=== PATIENT | female | born 1965 | race Hispanic/Latino ===

== ENCOUNTER 2018-05-12 07:22 | Day surgery (SDC) | payer BC ==
--- NOTE | 2018-05-11 16:45 | RAD REPORT ---
EXAM DESCRIPTION: RAD - Chest Pa And Lat (2 Views) - 05/11/2018 4:40 pm CLINICAL HISTORY: Hypertension Chest pain. COMPARISON: Chest Pa And Lat (2 Views) dated 04/08/2018; Chest Single View dated 12/03/2016; CHEST PA AN D LAT 2 VIEW dated 09/11/2015; CHEST SINGLE VIEW dated 01/08/2014 FINDINGS: The lungs are clear. The heart is normal in size. No displaced fractures. IMPRESSION: No acute or concerning finding suspected.
[2018-05-11 16:54] LABS: Absolute Lymphocytes (CBC) 2.9 K/uL (0.7-4.9); Absolute Monocytes 0.5 K/uL (0.1-1.3); Absolute Neutrophil 3.3 K/uL (1.8-8.0); Basophils % 0.7 % (0-1.3); Eosinophils % 2.2 % (0-4.4); Hematocrit 46.8 % (36.0-45.0); MCH 30.6 pg (27.0-35.0); MCV 90.3 fL (80-100); MPV 8.9 fL (7.6-11.3); Monocytes % 7.8 % (3.3-12.3); RBC Red Blood Cell Count 5.18 M/uL (3.86-4.86)
[2018-05-11 17:10] LABS: Albumin 4.2 g/dL (3.4-5.0); Bilirubin Direct 0.2 mg/dL (0-0.2); Bilirubin Total 1.1 mg/dL (0.2-1.0); Potassium 4.6 mmol/L (3.5-5.1); Protein, Total 7.8 g/dL (6.4-8.2)
--- NOTE | 2018-05-11 21:31 | EKG ---
Test Date: 2018-05-11 Test Time: 16:23:03 Mercerizing Range Controller: RHINA MEASUREMENT RESULTS: Intervals: Rate: 58 NC: 152 QRSD: 94 QT: 424 QTc: 416 [place]: P: 59 NC: 152 QRS: 27 T: 37 INTERPRETIVE STATEMENTS: Sinus bradycardia Otherwise normal ECG Compared to ECG 12/03/2016 11:42:34 Sinus rhythm no longer present Myocardial infarct finding no longer present Electronically Signed On 05-11-18 21:31:01 CDT by Jamey Gutierrez
[~2018-05-12 07:22] MED LIST: CEFOXITIN/SWI 1gm 1 GM/10 ML SYR IVP SCH
[2018-05-12] MEDS ORDERED: Ringers Lactate 1,000 ML IV ONE (07:38)
[2018-05-12] MEDS ORDERED: CEFOXITIN/SWI 1gm 1 GM/10 ML SYR ONE (07:50)
[2018-05-12] MEDS ORDERED: PROPOFOL 200 MG/20 ML VIAL IV ONE (08:03)
[2018-05-12] MEDS ORDERED: MIDAZOLAM HCL 2 MG/2 ML INJ ONE (08:04)
[2018-05-12] MEDS ORDERED: GLYCOPYRROLATE 0.2 MG/ML SYR ONE (08:04)
[2018-05-12] MEDS ORDERED: FENTANYL CITR 250 MCG/5 ML ONE (08:04)
[2018-05-12] MEDS ORDERED: LIDOCAINE 2% MPF 5 ML VIAL ONE (08:04)
[2018-05-12] MEDS ORDERED: ROCURONIUM 50 MG/5 ML VIAL IV ONE (08:12)
--- NOTE | 2018-05-12 08:50 | P.BOP ---
Preoperative diagnosis: RUQ abd pain, biliary dyskinesia Postoperative diagnosis: same Primary procedure: Laparoscopic cholecystectomy Relief Pilot: FILEMON CHANEY (java j2ee technical lead) Estimated blood loss: <10cc Specimen: gb Findings: as above Anesthesia: General Transferred to: Recovery Room Condition: Good
[2018-05-12] MEDS ORDERED: ONDANSETRON 4 MG/2 ML VIAL ONE (10:16)
[2018-05-12 10:54] VITALS: BP 154/79; TEMP 98.1; O2SAT 97
--- NOTE | 2018-05-12 20:03 | OP ---
Date of Procedure: 05/12/2018 Surgeon: Quan Lazo MD Lead Janitor: SCHUYLER Pemberton. Preoperative Diagnoses: Right upper quadrant abdominal pain and biliary dyskinesia. Postoperative Diagnoses: Right upper quadrant abdominal pain and biliary dyskinesia. Procedure: Laparoscopic cholecystectomy. Estimated Blood Loss: Less than 10 cc. Specimen: Gallbladder. Anesthesia: General plus local. Indications: This is a case of a 52-year-old patient with recurrent intractable right upper quadrant pain associated with nausea, vomiting, radiating to the back. The patient diagnosed with biliary dy skinesia. Options include laparoscopic possible open cholecystectomy that she has elected with benef its, alternatives, and risks fully explained, which include, but are not limited to infection, bleedi ng, damage to adjacent structures, anesthesia complication, choledocholithiasis, bile leak, pancreati tis, ID, and even . She also understands this may not relieve the symptoms. She might need mor e than one surgical intervention. She understood. Signed a consent. Description Of Procedure: The patient was brought to the operating room and placed in the supine pos ition. Anesthesia was done without complication. Abdominal area was prepped and draped in sterile f ashion. A time-out was called. After that, local anesthesia was applied over the infraumbilical reg ion. Incision was carried down to fascia, which was opened under direct vision. Peritoneum was enco untered, opened under direct vision. Vicryl #1 placed inside the fascia. Chloe trocar was carefull y introduced. No bleeding was obtained. I placed 3 more trocars, 5 mm each one of them, in the righ t upper quadrant under direct visualization. The grasper was placed in the fundus of the gallbladder , another grasper in the infundibulum, retracted the gallbladder in the inferolateral fashion exposin g the triangle of Calot and obtaining critical view of safety. The cystic duct and cystic artery wer e clearly isolated free circumferentially and a connection between those and the gallbladder was ainsley rly identified. I proceeded to ligate those by using at least 3 clips proximal, 1 clip distal, ligat ion in middle. Same was done with the cystic artery. No bile leak. No bleeding. The gallbladder r emoved from the liver using Bovie cauterizer and removed from abdominal cavity using an EndoCatch thr ough the umbilical incision. The area was inspected once again. No bile leak. No bleeding. Clips were intact. At that moment, I proceeded to remove the trocars under direct vision. Deflated pneumo peritoneum. Closed the fascia with #1 Vicryl, irrigated subcutaneous tissue and closed that with her chromic and skin in subcuticular fashion with 3-0 chromic and Steri-Strips on top. Sponge count and instrument counts were correct. The patient tolerated the procedure well. The patient was sent to recovery in stable condition. ISAMAR/DUKE Voice ID: [id number] Report ID: [id number]
--- NOTE | 2018-05-12 20:09 | DS ---
Date of Discharge: 05/12/2018 Diagnoses: Right upper quadrant abdominal pain and biliary dyskinesia. Procedure: Laparoscopic cholecystectomy. Disposition: Home. Activity: As tolerated. No heavy lifting. Followup: Follow up in my office in 1 week. Call for appointment [phone]. Keep area dry for 48 ho urs, then may shower. Keep Steri-Strip intact. Medications: See orders. ISAMAR/DUKE Voice ID: [id number] Report ID: [id number]
== END 2018-05-12 11:18 | disposition home or self-care (01) ==
LOC: OR 07:22
PROVIDERS: ATTEND Surgery
PROC: 0FT44ZZ Resection of Gallbladder, Percutaneous Endoscopic Approach (ICD-10-PCS; principal; 2018-05-12 09:00)
DX: K82.8 Other specified diseases of gallbladder (principal); R10.11 Right upper quadrant pain
CPT/HCPCS: 36415; 71046; 80048; 80076; 82150; 83690; 85025; 88304; 93005; J2250; J2405

== ENCOUNTER 2019-08-21 17:50 | Emergency (ER) | payer BC ==
--- NOTE | 2019-08-21 18:31 | EDPHYS ---
Physician Documentation [facility] Name: Elisa Silva Age: 53 yrs Sex: Female : 1965 Arrival Date: 08/21/2019 Time: 17:51 Bed 20 Private MD: Unknown, Unknown ED Physician David Parish HPI: 08/21 18:19 This 53 yrs old Female presents to ER via Ambulatory with complaints of Fever, jmm Sinus Congestion. 18:19 The patient or guardian reports nasal congestion. Onset: The symptoms/episode jmm began/occurred gradually, 3 day(s) ago. Modifying factors: The symptoms are alleviated by nothing. the symptoms are aggravated by nothing. Associated signs and symptoms: Pertinent positives: fever. This is a 53 year old female with a history of htn, asthma that presents to the ED with complaints of congestion, low grade fever beginning 3 days ago. Patient states she has taken tylenol without relief. Denies cough, denies sore throat. . Historical: - Allergies: 17:58 erythromycin lactobionate; hb 17:58 Macrolide Antibiotics; hb - PMHx: 17:58 Asthma; Hypertension; hb - PSHx: 17:58 Tubal ligation; Hysterectomy; hb - Immunization history:: Adult Immunizations up to date. - Social history:: Smoking status: Patient/guardian denies using tobacco. - Ebola Screening: : No symptoms or risks identified at this time. ROS: 18:19 Cardiovascular: Negative for chest pain, palpitations, and edema, Respiratory: Negative jmm for shortness of breath, cough, wheezing, and pleuritic chest pain, Abdomen/GI: Negative for abdominal pain, nausea, vomiting, diarrhea, and constipation. 18:19 Constitutional: Positive for fever. 18:19 ENT: Positive for nasal discharge, sinus congestion, sinus pain. 18:19 All other systems are negative. Exam: 18:19 Constitutional: This is a well developed, well nourished patient who is awake, alert, jmm and in no acute distress. 18:19 Chest/axilla: Normal chest wall appearance and motion. 18:19 Abdomen/GI: Non distended, soft Back: Normal ROM Skin: General appearance color normal MS/ Extremity: Moves all extremities, no obvious deformities appreciated, no edema noted to the lower extremities Neuro: Awake and alert, normal gait Psych: Behavior is normal, Mood is normal, Patient is cooperative and pleasant 18:19 Head/face: Sinus tenderness, that is moderate, is located over the right maxillary sinus and left maxillary sinus. 18:19 ENT: TM's: erythema, that is mild, bilaterally, Posterior pharynx: is normal. 18:19 Cardiovascular: Rate: normal, Rhythm: regular. 18:19 Respiratory: the patient does not display signs of respiratory distress, Respirations: normal, Breath sounds: are clear throughout. Vital Signs: 17:58 BP 146 / 85; Pulse 81; Resp 16; Temp 99.3; Pulse Ox 97% on R/A; Weight 63.5 kg; Height hb 5 ft. 6 in. (167.64 cm); Pain 2/10; 17:58 Body Mass Index 22.60 (63.50 kg, 167.64 cm) hb MDM: 18:19 Patient medically screened. dominic 18:27 Data reviewed: vital signs, nurses notes. Counseling: I had a detailed discussion with dominic the patient and/or guardian regarding: the historical points, exam findings, and any diagnostic results supporting the discharge/admit diagnosis, the need for outpatient follow up, to return to the emergency department if symptoms worsen or persist or if there are any questions or concerns that arise at home. ED course: Patient is alert and non toxic in appearance in the ED. PE appears consistent with sinusitis. Most likely viral. patient is advised to follow up with PCP and otherwise given strict return precautions. patient understood and agrees with the plan of care. . Administered Medications: No medications were administered Disposition: 08/21/19 18:30 Discharged to Home. Impression: Acute sinusitis. - Condition is Stable. - Discharge Instructions: Sinusitis, Adult. - Prescriptions for triamcinolone acetonide 55 mcg Nasal aerosol,spray - spray 2 spray by INTRANASAL route once daily; 1 Cartridge. - Medication Reconciliation Form, Thank You Letter, Antibiotic Education, Prescription Opioid Use form. - Follow up: Private Physician; When: 2 - 3 days; Reason: Recheck today's complaints, Continuance of care, Re-evaluation by your physician. Signatures: Jayden Hong PA PA jmm Munoz, Edgar, WIND OPERATIONS SUPERVISOR WIND OPERATIONS SUPERVISOR em Saloni Barry, RN RN Corrections: (The following items were deleted from the chart) 18:42 18:30 08/21/2019 18:30 Discharged to Home. Impression: Acute sinusitis. Condition is em Stable. Forms are Medication Reconciliation Form, Thank You Letter, Antibiotic Education, Prescription Opioid Use. Follow up: Private Physician; When: 2 - 3 days; Reason: Recheck today's complaints, Continuance of care, Re-evaluation by your physician. dominic
--- NOTE | 2019-08-21 18:31 | ER ---
Nurse's Notes [facility] Name: Elisa Silva Age: 53 yrs Sex: Female : 1965 Arrival Date: 08/21/2019 Time: 17:51 Bed 20 Private MD: Unknown, Unknown Diagnosis: Acute sinusitis Presentation: 08/21 17:57 Presenting complaint: Fever, sinus congestion, and malaise x 4 days. Transition of hb care: patient was not received from another setting of care. Onset of symptoms was August 18, 2019. Risk Assessment: Do you want to hurt yourself or someone else? Patient reports no desire to harm self or others. Care prior to arrival: None. 17:57 Method Of Arrival: Ambulatory hb 17:57 Acuity: JACKSON 4 hb 18:03 Initial Sepsis Screen: Does the patient meet any 2 criteria? No. Patient's initial em sepsis screen is negative. Does the patient have a suspected source of infection? No. Patient's initial sepsis screen is negative. Historical: - Allergies: 17:58 erythromycin lactobionate; hb 17:58 Macrolide Antibiotics; hb - PMHx: 17:58 Asthma; Hypertension; hb - PSHx: 17:58 Tubal ligation; Hysterectomy; hb - Immunization history:: Adult Immunizations up to date. - Social history:: Smoking status: Patient/guardian denies using tobacco. - Ebola Screening: : No symptoms or risks identified at this time. Screenin:03 Abuse screen: Denies threats or abuse. Nutritional screening: No deficits noted. em Tuberculosis screening: No symptoms or risk factors identified. Fall Risk None identified. Assessment: 18:13 General: Appears in no apparent distress. comfortable, Behavior is calm, cooperative, em Reports fever for > 3 days. Pain: Complains of pain in left maxillary sinus and right maxillary sinus Pain currently is 2 out of 10 on a pain scale. Neuro: Level of Consciousness is awake, alert, obeys commands, Oriented to person, place, time, situation, Appropriate for age. Cardiovascular: Capillary refill < 3 seconds Patient's skin is warm and dry. Respiratory: Airway is patent Respiratory effort is even, unlabored, Respiratory pattern is regular, symmetrical, Breath sounds are clear bilaterally. GI: Abdomen is flat, Bowel sounds present X 4 quads. Abd is soft and non tender X 4 quads. Patient currently denies nausea, vomiting. EENT: Nares are clear Oral mucosa is moist. Throat is clear is pink Reports nasal congestion since . Derm: Skin is intact, is healthy with good turgor, Skin is pink, warm \T\ dry. Musculoskeletal: Capillary refill < 3 seconds, Range of motion: intact in all extremities. Vital Signs: 17:58 BP 146 / 85; Pulse 81; Resp 16; Temp 99.3; Pulse Ox 97% on R/A; Weight 63.5 kg; Height hb 5 ft. 6 in. (167.64 cm); Pain 2/10; 17:58 Body Mass Index 22.60 (63.50 kg, 167.64 cm) hb ED Course: 17:51 Patient arrived in ED. ag5 17:52 Unknown, Unknown is Private Physician. ag5 17:58 Triage completed. hb 17:58 Arm band placed on. hb 18:00 Neel Dorman LVN is Primary Nurse. em 18:03 Patient has correct armband on for positive identification. Bed in low position. Call em light in reach. 18:04 Jayden Hong PA is PHCP. [facility] 18:04 David Parish MD is Attending Physician. [facility] 18:41 No provider procedures requiring assistance completed. Patient did not have IV access em during this emergency room visit. Administered Medications: No medications were administered Outcome: 18:30 Discharge ordered by . [facility] 18:41 Discharged to home ambulatory. em 18:41 Condition: good 18:41 Discharge instructions given to patient, Instructed on discharge instructions, follow up and referral plans. medication usage, Demonstrated understanding of instructions, follow-up care, medications, Prescriptions given X 1. 18:42 Patient left the ED. em Signatures: Jayden Hong PA PA Neel Strong LVN ODD BUNDLE WORKER em Saloni Barry RN RN Sumaya Mojica ag5 Corrections: (The following items were deleted from the chart) 17:59 17:58 BP 146 / 85; Pulse 81bpm; Resp 16bpm; Pulse Ox 97% RA; Temp 99F; 63.5 kg; Height hb 5 ft. 6 in.; BMI: 22.6; Pain 2/10; hb
[2019-08-21 18:47] VITALS: BP 146/85; TEMP 99.3; O2SAT 97
== END 2019-08-21 18:42 | disposition home or self-care (01) ==
LOC: ER 17:50
DX: J01.90 Acute sinusitis, unspecified (principal); I10 Essential (primary) hypertension; J45.909 Unspecified asthma, uncomplicated; Z88.1 Allergy status to other antibiotic agents; Z88.3 Allergy status to other anti-infective agents
CPT/HCPCS: 99282

== ENCOUNTER 2020-02-28 17:33 | Observation (INO) | payer BC ==
--- OUTSIDE RECORDS SUMMARY | 2020-02-28 17:37 | XMS REPORT ---
:1965 Author Organization [facility] t Address [address] [place] [address] Dr. Clarke [address] [place] [id number] Care Team Providers Name Role Phone Unavailable Unavailable Unavailable Problems This patient has no known problems. Allergies, Adverse Reactions, Alerts This patient has no known allergies or adverse reactions. Medications This patient has no known medications.
--- OUTSIDE RECORDS SUMMARY | 2020-02-28 17:39 | XMS REPORT | Summary of Care ---
:1965 Author Organization [facility] Address [address] [place] [id number] Care Team Providers Name Role Phone MD Myles Primary Care Provider Reason for Referral Radiology Services (Routine) Status Reason Specialty Diagnoses / Referred By Referred To Procedures Contact Contact New Request Diagnostic Diagnoses Open nondisplaced fracture of proximal phalanx of left little finger, initial encounter Vitaly Steele, Radiology Procedures XR HAND <3 VW LEFT PAC [address] [place] [address] Reason for Visit Reason Comments New Patient Left Small Finger Injury/Has Films Encounter Details Date Type Department Care Team Description 02/28/2020 Office Visit [facility] Vitaly Steele, Open nondisp laced Orthopaedic Surgery- PAC fracture of proximal [place] [address] of left little [address] finger, initial [address] [place], [place] encounter (Primary Dx) [place] [phone] Allergies Active Allergy Reactions Severity Noted Date Comments Erythromycin Hives 08/09/2010 documented as of this encounter (statuses as of 02/28/2020) Medications Medication Sig Dispensed Refills Start Date End Date Status albuterol sulfate (PROAIR Inhale. 0 Active HFA INHALE) fluticasone propionate Inhale 2 Puffs 12 g 11 05/19/2019 Active 110 mcg/actuation every 12 inhalerIndications: (twelve) hours. Moderate persistent asthma without complication amLODIPine 5 mg tablet Take 5 mg by 6 06/03/2019 Active mouth 2 (two) times daily. hydroCHLOROthiazide 12.5 3 06/03/2019 Active mg tablet metoprolol succinate XL TK 1 T PO QD 3 06/03/2019 Active 25 mg 24 hr tablet triamcinolone acetonide Apply to 15 g 3 06/10/2019 Active 0.1 % creamIndications: area(s) 2 (two) Rash and nonspecific skin times daily. eruption albuterol 2.5 mg /3 mL Inhale 3 mL 1 Box 0 07/01/2019 Active (0.083 %) nebulizer every 4 (four) solutionIndications: hours as needed Bronchitis for Wheezing or Shortness of Breath. methylPREDNISolone 4 mg Take by mouth 21 Each 0 07/01/2019 Active tabletsIndications: SEE-INSTRUCTIONS Bronchitis . follow package directions inhalational spacing Use as directed 1 Each 0 07/15/2019 Active device (BREATHERITE MDI SPACER)Indications: Mild persistent asthma without complication acetaminophen-codeine 1/2 - 1 tab 15 tablet 0 09/02/2019 Active 300-30 mg Every 4hrs as tabletIndications: Cough needed for pain or cough requiring narcotic documented as of this encounter (statuses as of 02/28/2020) Active Problems Problem Noted Date Chronic low back pain 08/29/2016 Localized superficial swelling, mass, or lump 05/04/20 07 Overview: Jaw mass documented as of this encounter (statuses as of 02/28/2020) Social History Tobacco Use Types Packs/Day Years Used Date Never Smoker Smokeless Tobacco: Never Used Alcohol Use Drinks/Week oz/Week Comments No 0 Standard drinks or equivalent 0.0 Sex Assigned at Date Recorded Not on file Job Start Date Occupation Industry Not on file Not on file Not on file Travel History Travel Start Travel End No recent travel history available. COVID-19 Exposure Response Date Recorded In the last month, have you been in contact with No / Unsure 02/28/2020 8:50 AM CDT someone who was confirmed or suspected to have Coronavirus / COVID-19? documented as of this encounter Last Filed Vital Signs Vital Sign Reading Time Taken Comments Blood Pressure 172/97 02/28/2020 8:59 AM CDT Pulse 68 02/28/2020 8:59 AM CDT Temperature - - Respiratory Rate - - Oxygen Saturation - - Inhaled Oxygen Concentration - - Weight 64.4 kg (142 lb) 02/28/2020 8:55 AM CDT Height 172.7 cm (5' 8") 02/28/2020 8:55 AM CDT Body Mass Index 21.59 02/28/2020 8:55 AM CDT documented in this encounter Progress Notes Vitaly Steele, PAC - 02/28/2020 9:00 AM CDT Cc: Chief Complaint Patient presents with New Patient Left Small Finger Injury/Has Films came in with finger splint. DOI: 02/16/20 - 10 days out today. Brought in films with report from [facility] 02/20/20. Patient leaving mothers house and caught foot on concrete and fell. Has fractured riband left small finger. Fatemeh Ca 02/28/2020 8:59 AM Danielle Silva is a 54 year old female. She tripped and fell cracking some ribs and breaking her left hand described as a fifth metacarpal fracture she came in today with a finger splint that goes to the base of the finger, pain is 4-5/10 inintensity. Has a burning pain at the base of her small finger of her left hand in the area of the proximal phalanx. X-rays performed at [facility]. Allergies Danielle is allergic to erythromycin. Medications Outpatient Medications Prior to Visit Medication Sig Dispense Refill acetaminophen-codeine 300-30 mg tablet 1/2 - 1 tab Every 4hrs as needed for pain or cough requiring narcotic 15 tablet 0 inhalational spacing device (BREATHERITE MDI SPACER) Use as directed 1 Each 0 albuterol 2.5 mg /3 mL (0.083 %) nebulizer solution Inhale 3 mL every 4 (four) hours as needed for Wheezing or Shortness of Breath. 1 Box 0 methylPREDNISolone 4 mg tablets Take by mouth SEE-INSTRUCTIONS. follow package directions 21 Each 0 amLODIPine 5 mg tablet Take 5 mg by mouth 2 (two) times daily. 6 hydroCHLOROthiazide 12.5 mg tablet 3 metoprolol succinate XL 25 mg 24 hr tablet TK 1 T PO QD 3 triamcinolone acetonide 0.1 % cream Apply to area(s) 2 (two) times daily. 15 g 3 fluticasone propionate 110 mcg/actuation inhaler Inhale 2 Puffs every 12 (twelve) hours. 12 g 11 albuterol sulfate (PROAIR HFA INHALE) Inhale. No facility-administered medications prior to visit. Histories Past Medical History: Diagnosis Date Anxiety Arthritis Bipolar 1 disorder Chronic low back pain 08/29/2016 Hypertension Past Surgical History: Procedure Laterality Date TUBAL LIGATION Social History Socioeconomic History Marital status: Spouse name: Not on file Number of children: Not on file Years of education: Not on file Highest education level: Not on file Occupational History Not on file Social Needs Financial resource strain: Not on file Food insecurity: Worry: Not on file Inability: Not on file Transportation needs: Medical: Not on file Non-medical: Not on file Tobacco Use Smoking status: Never Smoker Smokeless tobacco: Never Used Substance and Sexual Activity Alcohol use: No Alcohol/week: 0.0 standard drinks Drug use: No Sexual activity: Not on file Lifestyle Physical activity: Days per week: Not on file Minutes per session: Not on file Stress: Not on file Relationships Social connections: Talks on phone: Not on file Gets together: Not on file Attends jainism service: Not on file Active member of club or organization: Not on file Attends meetings of clubs or organizations: Not on file Relationship status: Not on file Intimate partner violence: Fear of current or ex partner: Not on file Emotionally abused: Not on file Physically abused: Not on file Forced sexual activity: Not on file Other Topics Concern Not on file Social History Narrative Not on file Family History Problem Relation Age of Onset No Significant Medical Problems NoFHx Review of Systems Constitutional: Negative. HENT: Negative. Eyes: Negative. Respiratory: Negative. Breasts: Negative. Cardiovascular: Negative. Gastrointestinal: Negative. Genitourinary: Negative. Musculoskeletal: Positive for joint swelling. Skin: Negative. Neurological: Negative. Psychiatric/Behavioral: Negative. Endocrine: Endocrine negative Vital Signs Physical Exam Musculoskeletal: Physical Exam Constitutional: oriented to person, place, and time. appears well-developed and well-nourished. HENT: Head: Normocephalic and atraumatic. Right Ear: External ear normal. Left Ear: External ear normal. Eyes: Conjunctivae are normal. Neck: Normal range of motion. No strabismus Neck supple. Cardiovascular: Normal rate and regular rhythm. Pulmonary/Chest: Normal respiratory rate equal chest rise and fall in no apparent distress Abdominal: Abdomen nondistended nontender Neurological: alert and oriented to person, place, and time. No asymmetry Skin: Skin is warm and dry. Psychiatric: normal mood and affect. behavior is normal. Judgment and thought content normal. Nursing note and vitals reviewed. Point tenderness and ecchymosis at the proximal portion of the small finger of her left hand X-rays obtained at [facility] on 02/20/2020 findings: Minimally displaced fracture and vitals the proximal aspect of the fifth metacarpal. No dislocation dictated by Clement Garcia M.D. X-rays reviewed there is no fracture visible at the proximal fifth metacarpal but there is an oblique fracture in the base of the proximal phalanx of the fifth finger this fracture is nondisplaced Assessment/Plan 1. Open nondisplaced fracture of proximal phalanx of left little finger, initial encounter She was placed in an ulnar gutter splint by Vitaly Steele PA-C, wear this for 6 weeks Follow-up x-ray in one week No lifting pushing pulling grasping squeezing with the left hand for 6 weeks. documented in this encounter Plan of Treatment Health Maintenance Due Date Last Done Comments PNEUMOCOCCAL 0-64 YEARS COMBINED 1972 SERIES (1 of 1 - PPSV23) DTaP,Tdap,and Td Vaccines (1 - 1977 Tdap) COLONOSCOPY 2016 INFLUENZA VACCINE (#1) 2019 Breast Cancer Screening 10/11/2019 10/11/2018 (MAMMOGRAM) Zoster Recombinant Vaccine 06/20/2020 Postp oned from 2016 (SHINGRIX) (1 of 2) (Refused) documented as of this encounter Results XR HAND <3 VW LEFT (02/28/2020 9:23 AM CDT) Specimen Narrative Performed At This result has an attachment that is no t available. obliqui fracture base of proximal phalanx left fifth finger remains PACS nondisplaced there is a break in the cortex with a obl ique lucency Performing Organization Address City/State/Zipcode Phone Number PACS documented in this encounter Visit Diagnoses Diagnosis Open nondisplaced fracture of proximal p halanx of left little finger, initial encounter - Primary documented in this encounter Insurance Payer Benefit Plan / Subscriber ID Effective Dates Phone Addre ss Type Group [place] [id number] 2015-Present PPO/POS [employer]EE EMPLOYEE PLAN (Work) documented as of this encounter
--- OUTSIDE RECORDS SUMMARY | 2020-02-28 17:39 | XMS REPORT | Summary of Care ---
:1965 Author Organization [facility] Address [address] [place] [address] Care Team Providers Name Role Phone MD Myles Primary Care Provider Reason for Referral Radiology Services (Routine) Status Reason Specialty Diagnoses / Referred By Referred To Procedures Contact Contact New Request Diagnostic Diagnoses Open nondisplaced fracture of proximal phalanx of left little finger, initial encounter Vitaly Steele, Radiology Procedures XR HAND <3 VW LEFT PAC [address] [place] [address] Reason for Visit Reason Comments New Patient Left Small Finger Injury/Has Films Encounter Details Date Type Department Care Team Description 02/28/2020 Office Visit [facility] Vitaly Steele, Open nondisp laced Orthopaedic Surgery- PAC fracture of proximal [place] [address] phalanx of left little [address] finger, initial [address] [place], [place] encounter (Primary Dx) [place] [phone] Allergies Active Allergy Reactions [...] today. Brought in films with report from [facility] 02/20/20. Patient leaving mothers house and caught [...] of the proximal phalanx. [facility]. Allergies Danielle is allergic to erythromycin. 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
[2020-02-28] MEDS ORDERED: MORPHINE 4 MG/ML SYR ONE (18:20)
[2020-02-28] MEDS ORDERED: ONDANSETRON 4 MG/2 ML VIAL ONE (18:20)
[2020-02-28] MEDS ORDERED: PROMETHAZINE INJ 25 MG/ML AMP ONE (18:20)
[2020-02-28] MEDS ORDERED: NA CHLORIDE 0.9% 1,000 ML ONE ×2 (18:20→20:48)
[2020-02-28 18:43] LABS: Absolute Lymphocytes (CBC) 1.2 K/uL (0.7-4.9); Basophils % 0.3 % (0-1.3); Hematocrit 48.1 % (36.0-45.0); Lymphocytes % 11.3 % (15.3-44.8); MPV 8.9 fL (7.6-11.3); RBC Red Blood Cell Count 5.28 M/uL (3.86-4.86)
[2020-02-28 18:55] LABS: Albumin 4.3 g/dL (3.4-5.0); Bilirubin Direct 0.1 mg/dL (0-0.2); Potassium 3.9 mmol/L (3.5-5.1)
--- NOTE | 2020-02-28 19:57 | RAD REPORT ---
EXAM DESCRIPTION: CT - Abdomen Pelvis W Contrast - 02/28/2020 7:36 pm CLINICAL HISTORY: Abdominal pain COMPARISON: none. TECHNIQUE: Computed axial tomography of the abdomen pelvis was obtained. 100 cc Isovue-300 was admin istered intravenously. Oral contrast was not requested which limits evaluation of bowel. All CT scans are performed using dose optimization technique as appropriate and may include automated exposure control or mA/KV adjustment according to patient size. FINDINGS: Cholecystectomy The liver, spleen, pancreas, adrenal and kidneys appear unremarkable. There is no evidence of diverticulitis. The appendix is borderline enlarged. No stranding is seen within the adjacent fat. No free air. No ab scess Small umbilical hernia IMPRESSION: Borderline enlargement of the appendix. Given that there is no stranding within the eun cent fat this probably is not significant. However, an early appendicitis can also have this appearan ce and should be correlated clinically.
--- NOTE | 2020-02-28 20:37 | ER ---
Nurse's Notes [facility] Name: Elisa Silva Age: 54 yrs Sex: Female : 1965 Arrival Date: 02/28/2020 Time: 17:37 Bed 8 Private MD: Diagnosis: Acute appendicitis Presentation: 02/27 18:08 Chief complaint: Patient states: vomiting, diarrhea abd cramping X 1 hour , +chills, no iw fever. Coronavirus screen: Proceed with normal triage. Patient denies a cough. Patient denies shortness of breath or difficulty breathing. Patient denies measured and/or subjective temperature greater than 100.4F prior to today's visit. Patient denies travel on a cruise ship or to a country the [facility] currently lists as an affected area. Patient denies contact with known and/or suspected case of COVID-19. Ebola Screen: Patient negative for fever greater than or equal to 101.5 degrees Fahrenheit, and additional compatible Ebola Virus Disease symptoms Patient denies exposure to infectious person. Patient denies travel to an Ebola-affected area in the 21 days before illness onset. No symptoms or risks identified at this time. Initial Sepsis Screen: Does the patient meet any 2 criteria? No. Patient's initial sepsis screen is negative. Does the patient have a suspected source of infection? No. Patient's initial sepsis screen is negative. Risk Assessment: Do you want to hurt yourself or someone else? Patient reports no desire to harm self or others. Onset of symptoms was February 28, 2020. 18:08 Method Of Arrival: Ambulatory iw 18:08 Acuity: JACKSON 3 iw Triage Assessment: 18:25 General: Appears in no apparent distress. comfortable, well developed, Behavior is sv calm, cooperative, appropriate for age. Pain: Complains of pain in left upper quadrant and left lower quadrant Pain currently is 4 out of 10 on a pain scale. Quality of pain is described as crampy, Pain began 1 hour ago. Is continuous. Neuro: Level of Consciousness is awake, alert, obeys commands, Oriented to person, place, time, situation, Gait is steady. Respiratory: Airway is patent Respiratory effort is even, unlabored, Respiratory pattern is regular, symmetrical. GI: Reports cramping, diarrhea, nausea, vomiting. Derm: Skin is intact, Skin is pink, warm \T\ dry. 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 - Social history:: Smoking status: Patient denies any tobacco usage or history of. Screenin:04 Abuse screen: Denies threats or abuse. Denies injuries from another. Nutritional sv screening: No deficits noted. Tuberculosis screening: No symptoms or risk factors identified. Fall Risk None identified. Assessment: 18:25 Reassessment: Pt refused phenergan and morphine at this time. sv 19:00 General: Appears in no apparent distress. comfortable, Behavior is calm, cooperative, rr5 appropriate for age. Pain: Complains of pain in right lower quadrant Pain radiates to left upper quadrant and left lower quadrant Pain currently is 4 out of 10 on a pain scale. Quality of pain is described as aching, Pain began gradually, Is intermittent. Neuro: Level of Consciousness is awake, alert, obeys commands, Oriented to person, place, time, situation. Cardiovascular: Capillary refill < 3 seconds Patient's skin is warm and dry. Respiratory: Airway is patent Respiratory effort is even, unlabored, Respiratory pattern is regular, symmetrical. GI: Abdomen is round non-distended, Bowel sounds present X 4 quads. Abd is soft and non tender Reports lower abdominal pain, upper abdominal pain, diarrhea, nausea. : No signs and/or symptoms were reported regarding the genitourinary system. EENT: No signs and/or symptoms were reported regarding the EENT system. Derm: Skin is intact, is healthy with good turgor, Skin temperature is warm. Musculoskeletal: Circulation, motion, and sensation intact. Capillary refill < 3 seconds. 19:56 Reassessment: Patient appears in no apparent distress at this time. Patient and/or mg2 family updated on plan of care and expected duration. Pain level reassessed. Patient is alert, oriented x 3, equal unlabored respirations, skin warm/dry/pink. 21:05 Reassessment: Patient appears in no apparent distress at this time. Patient is alert, rr5 oriented x 3, equal unlabored respirations, skin warm/dry/pink. seen and examined by dr. becerra. 22:07 Reassessment: Patient appears in no apparent distress at this time. Patient is alert, rr5 oriented x 3, equal unlabored respirations, skin warm/dry/pink. transferred to surgical floor awake alert breathing spontaneously at room air no complaints made. Vital Signs: 18:08 BP 174 / 82; Pulse 59; Resp 16; Temp 98.4; Pulse Ox 100% on R/A; Pain 4/10; iw 18:51 BP 160 / 77; Pulse 66; Resp 16; Pulse Ox 100% ; sv 19:55 BP 143 / 70; Pulse 73; Resp 18; Pulse Ox 98% on R/A; mg2 20:55 BP 153 / 80; Pulse 70; Resp 17; Pulse Ox 99% ; Pain 4/10; rr5 21:19 BP 168 / 87; Pulse 71; Resp 18; Temp 98.4; Pulse Ox 99% on R/A; mg2 ED Course: 17:37 Patient arrived in ED. mr 18:03 Susanne Sidhu RN is Primary Nurse. sv 18:04 Arm band placed on Patient placed in an exam room, on a stretcher, on pulse oximetry. sv 18:04 Patient has correct armband on for positive identification. Bed in low position. Call sv light in reach. Pulse ox on. NIBP on. Door closed. Head of bed elevated. 18:07 Arnaud Temple NP is PHCP. pm1 18:07 Kvng Goins MD is Attending Physician. pm1 18:09 Triage completed. iw 18:25 Initial lab(s) drawn, by me, sent to lab. Inserted saline lock: 20 gauge in right jl7 antecubital area, using aseptic technique. Blood collected. 18:[address] Scan. sv 19:03 Report given to Robby SOW and Maninder SOW. sv 19:08 Primary Nurse role handed off by Susanne Sidhu, MAGI sv 19:12 Robby Sales RN is Primary Nurse. mg2 19:36 CT Abd/Pelvis - IV Contrast Only In Process Unspecified. EDMS 19:56 No provider procedures requiring assistance completed. mg2 20:36 Clif Becerra MD is Hospitalizing Provider. pm1 21:24 Patient admitted, IV remains in place. intact, No redness/swelling at site. rr5 21:53 Initial lab(s) drawn, by me, sent to lab. rr5 Administered Medications: 18:25 Drug: NS 0.9% 1000 ml Route: IV; Rate: 1000 ml; Site: right antecubital; jl7 19:30 Follow up: Response: No adverse reaction; IV Status: Completed infusion; IV Intake: rr5 1000ml 19:07 Not Given (Patient Refused): morphine 4 mg IVP once; RASS on ADMIN: Combtv4, Very jl7 Agttd3, Agttd2, Rstlss1, AlertClm0, Drwsy-1, Lt Sdtn-2, Mod Sdtn-3, Dp Sdtn-4, UnArsble-5 19:07 Not Given (Patient Refused): Phenergan 12.5 mg IVP once jl7 20:47 Drug: Zosyn 3.375 grams Route: IVPB; Infused Over: 60 mins; Site: right antecubital; mg2 21:21 Follow up: Response: No adverse reaction; IV Status: Completed infusion; IV Intake: rr5 100ml 20:47 Drug: NS 0.9% 1000 ml Route: IV; Rate: 125 ml/hr; Site: right antecubital; mg2 21:22 Follow up: Response: No adverse reaction; IV Status: Infusion continued upon admission rr5 Intake: 19:30 IV: 1000ml; Total: 1000ml. rr5 21:21 IV: 100ml; Total: 1100ml. rr5 Outcome: 20:36 Decision to Hospitalize by Provider. pm1 21:30 Admitted to Med/surg accompanied by tech, room 221, with chart, Report called to wally rr5 21:30 Condition: stable 21:30 Instructed on the need for admit. 22:07 Patient left the ED. rr5 Signatures: Dispatcher [employer] EDMS Susanne Sidhu RN RN sv [place], Mary mr Williams, Irene, RN RN iw Arnaud Temple, ISIDRO DIVERSIONAL THERAPIST'S ASSISTANT pm1 Ed Vann RN RN jl7 Robby Slaes RN RN mg2 Miranda, Maninder, RN RN rr5
--- NOTE | 2020-02-28 20:37 | EDPHYS ---
Physician Documentation [facility] Name: Elisa Silva Age: 54 yrs Sex: Female : 1965 Arrival Date: 02/28/2020 Time: 17:37 Bed 8 Private MD: ED Physician Kvng Goins HPI: 02/27 18:15 This 54 yrs old Female presents to ER via Ambulatory with complaints of pm1 Abdominal Pain, Vomiting/Diarrhea. 18:15 The patient presents with abdominal pain in the left lower quadrant. Onset: The pm1 symptoms/episode began/occurred this morning. The symptoms do not radiate. Associated signs and symptoms: Pertinent positives: nausea, vomiting, and diarrhea, Pertinent negatives: chest pain, dysuria, fever, shortness of breath. The symptoms are described as crampy. Modifying factors: The symptoms are alleviated by nothing, the symptoms are aggravated by nothing. Severity of pain: in the emergency department the pain is actually worse. The patient has not experienced similar symptoms in the past. The patient has not recently seen a physician, the patient's primary care provider is Dr. Jarrell. 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 - Social history:: Smoking status: Patient denies any tobacco usage or history of. ROS: 18:15 Constitutional: Negative for fever, chills, and weight loss, Neck: Negative for injury, pm1 pain, and swelling, Cardiovascular: Negative for chest pain, palpitations, and edema, Respiratory: Negative for shortness of breath, cough, wheezing, and pleuritic chest pain. 18:15 Back: Negative for injury and pain, MS/Extremity: Negative for injury and deformity, Skin: Negative for injury, rash, and discoloration. 18:15 : Negative for injury, bleeding, discharge, and swelling, Neuro: Negative for headache, weakness, numbness, tingling, and seizure. 18:15 Abdomen/GI: Positive for abdominal pain, nausea, vomiting, and diarrhea, Negative for constipation. Exam: 18:15 Constitutional: This is a well developed, well nourished patient who is awake, alert, pm1 and in no acute distress. Head/Face: Normocephalic, atraumatic. Chest/axilla: Normal chest wall appearance and motion. Nontender with no deformity. No lesions are appreciated. 18:15 Abdomen/GI: Soft, non-tender, with normal bowel sounds. No distension or tympany. No guarding or rebound. No evidence of tenderness throughout. Back: No spinal tenderness. No costovertebral tenderness. Full range of motion. Skin: Warm, dry with normal turgor. Normal color with no rashes, no lesions, and no evidence of cellulitis. MS/ Extremity: Pulses equal, no cyanosis. Neurovascular intact. Full, normal range of motion. 18:15 Cardiovascular: Exam negative for acute changes, Rate: normal, Pulses: no pulse deficits are appreciated, Edema: is not appreciated. 18:15 Respiratory: Exam negative for acute changes, respiratory distress, shortness of breath, wheezing. 18:15 Neuro: Exam negative for acute changes, Orientation: is normal, Mentation: is normal, Motor: is normal, moves all fours. Vital Signs: 18:08 BP 174 / 82; Pulse 59; Resp 16; Temp 98.4; Pulse Ox 100% on R/A; Pain 4/10; iw 18:51 BP 160 / 77; Pulse 66; Resp 16; Pulse Ox 100% ; sv 19:55 BP 143 / 70; Pulse 73; Resp 18; Pulse Ox 98% on R/A; mg2 20:55 BP 153 / 80; Pulse 70; Resp 17; Pulse Ox 99% ; Pain 4/10; rr5 21:19 BP 168 / 87; Pulse 71; Resp 18; Temp 98.4; Pulse Ox 99% on R/A; mg2 MDM: 18:08 Patient medically screened. pm1 20:19 Data reviewed: vital signs. Data interpreted: Pulse oximetry: on room air is 98 %. pm1 Interpretation: normal. 20:19 Counseling: I had a detailed discussion with the patient and/or guardian regarding: the pm1 historical points, exam findings, and any diagnostic results supporting the discharge/admit diagnosis, lab results, radiology results, the need for further work-up and treatment in the hospital. 20:28 Physician consultation: Clif Garza MD was called at 20:28, was contacted at 20:28, pm1 regarding admission, patient's condition, and will see patient tomorrow, NPO at midnight, IV fluids, Zosyn. 02/27 18:12 Order name: Basic Metabolic Panel; Complete Time: 18:56 pm1 02/27 18:12 Order name: CBC with Diff; Complete Time: 18:47 pm1 02/27 18:12 Order name: Creatinine for Radiology; Complete Time: 18:56 pm1 02/27 18:12 Order name: Hepatic Function; Complete Time: 18:56 pm1 02/27 18:12 Order name: Lipase; Complete Time: 18:56 pm1 02/27 20:17 Order name: Urine Microscopic Only mg2 02/27 18:12 Order name: CT Abd/Pelvis - IV Contrast Only; Complete Time: 20:06 pm1 02/27 20:18 Order name: Urine Microscopic Only; Complete Time: 21:55 EDMS 02/27 20:20 Order name: Urine Dipstick--Ancillary (enter results); Complete Time: 21:12 ar5 02/27 20:20 Order name: Urine --Ancillary (enter results); Complete Time: 21:12 ar5 02/27 18:12 Order name: IV Saline Lock; Complete Time: 18:25 pm1 02/27 18:12 Order name: Labs collected and sent; Complete Time: 18:25 pm1 02/27 20:28 Order name: NPO: at midnight; Complete Time: 20:39 pm1 Administered Medications: 18:25 Drug: NS 0.9% 1000 ml Route: IV; Rate: 1000 ml; Site: right antecubital; jl7 19:30 Follow up: Response: No adverse reaction; IV Status: Completed infusion; IV Intake: rr5 1000ml 19:07 Not Given (Patient Refused): morphine 4 mg IVP once; RASS on ADMIN: Combtv4, Very jl7 Agttd3, Agttd2, Rstlss1, AlertClm0, Drwsy-1, Lt Sdtn-2, Mod Sdtn-3, Dp Sdtn-4, UnArsble-5 19:07 Not Given (Patient Refused): Phenergan 12.5 mg IVP once jl7 20:47 Drug: Zosyn 3.375 grams Route: IVPB; Infused Over: 60 mins; Site: right antecubital; mg2 21:21 Follow up: Response: No adverse reaction; IV Status: Completed infusion; IV Intake: rr5 100ml 20:47 Drug: NS 0.9% 1000 ml Route: IV; Rate: 125 ml/hr; Site: right antecubital; mg2 21:22 Follow up: Response: No adverse reaction; IV Status: Infusion continued upon admission rr5 Disposition: 02/28/20 20:36 Hospitalization ordered by Clif Garza for Observation. Preliminary diagnosis is Acute appendicitis. - Bed requested for Telemetry/MedSurg (observation). - Status is Observation. rr5 - Condition is Stable. - Problem is new. - Symptoms have improved. Addendum: 03/03/2020 07:53 Co-signature as Attending Physician, Kvng Goins MD. r n Signatures: Dispatcher [employer] EDSusanne Deleon, RN RN Tesha Edwards RN MAGI dw Mira Downey, RN MAGI iw Kvng Goins MD MD rn Arnaud Temple, SEARCH MANAGER SEARCH MANAGER pm1 Ed Vann RN RN jl7 oRbby Sales, MAGI RN mg2 Maninder Miranda, RN RN rr5 Corrections: (The following items were deleted from the chart) 02/27 21:17 20:36 Hospitalization Ordered by Clif Garza MD for Observation. Preliminary diagnosis dw is Acute appendicitis. Bed requested for Telemetry/MedSurg (observation). Status is Observation. Condition is Stable. Problem is new. Symptoms have improved. pm1 22:07 21:17 02/28/2020 20:36 Hospitalization Ordered by Clif Garza MD for Observation. rr5 Preliminary diagnosis is Acute appendicitis. Bed requested for Telemetry/MedSurg (observation). Status is Observation. Condition is Stable. Problem is new. Symptoms have improved. dw
[2020-02-28] MEDS ORDERED: PIPER/TAZO/NS 3.375gm 3.375 GM/100 ML BAG ONE (20:48)
[2020-02-28 20:50] LABS: Urine Blood TRACE (NEG); Urine Glucose NEGATIVE (NEG); Urine Protein NEGATIVE (NEG)
[2020-02-28 21:16] LABS: Urine Bacteria <20 /HPF (<20); Urine Culture Reflex Order NOT NEEDED; Urine RBC NONE SEEN /HPF (NONE SEEN); Urine Urothelial Cells <5 /HPF (NONE SEEN)
[2020-02-28] MEDS: NA CHLORIDE 0.9% 1,000 ML IV SCH (22:01)
[2020-02-28] MEDS ORDERED: ALBUTEROL INHALER 60 PUFF/8 GM IH PRN (22:01)
[2020-02-28] MEDS ORDERED: MORPHINE 4 MG/ML SYR IV PRN (22:01)
[2020-02-28] MEDS ORDERED: ONDANSETRON 4 MG/2 ML VIAL IV PRN (22:01)
[2020-02-28] MEDS ORDERED: HYDRALAZINE HCL 20 MG/ML VIAL IV PRN (22:01)
--- NOTE | 2020-02-28 22:42 | HP ---
Date of Admission: 02/28/2020 Brief History Of Present Illness: Patient is a 54-year-old female who presents with approximately 1- day history of left lower quadrant abdominal pain extending up to the left upper quadrant. She has n ever had similar episodes before in the past, associated with nausea, vomiting, diarrhea. She has marcus d no change in bowel or bladder habits recently. No sick contacts. No recent travel. No COVID expo sure. She has not had any changes in her eating habits as well and she noted that the only relevant thing that has happened in the last week, approximately earlier in the week she fell down onto her le ft side, fractured a left-sided rib and left metacarpal which was treated on an outpatient basis. Th is is not associated with a type of symptomatology at this point. She feels somewhat better since be ing here at the hospital, however, she continues to have left lower quadrant abdominal pain with no r adiation to the right side. No rebound. No guarding. No focal peritonitis. Past Medical History: Significant for hypertension, asthma. Past Surgical History: She has tubal ligation, hysterectomy and a cholecystectomy. Home Medications: Include amlodipine, metoprolol, hydrochlorothiazide, and a rescue inhaler of albut liam. Social History: She denies smoking, alcohol, or recreational drug use. Family History: Reviewed, noncontributory. Allergies: TO ERYTHROMYCIN AND MACROLIDE ANTIBIOTICS. Review of Systems: 10-point review of systems other than HPI, denies. Physical Examination: Vital Signs: At the time of my examination, blood pressure is 160/77, pulse is 66, respiratory rate 16, SpO2 100% on room air. General: She is awake, alert, oriented. Psychiatric: She is appropriate conversive. HEENT: Normocephalic. Sclerae icteric. Mucous membranes are moist. Oropharynx clear. Neck: Supple. No JVD. Chest: Normal expansion and excursion Cardiovascular: Rate and rhythm. Pulmonary: Clear to auscultation bilaterally. Abdomen: Soft with mild left lower quadrant tenderness to palpation. No rebound. No guarding. No focal peritonitis. She has a small fat containing umbilical hernia. Right lower quadrant examinatio n is essentially unremarkable particularly McBurney's point, there is no tenderness. No rebound. No guarding. No skin changes. Extremities: No clubbing, cyanosis, or edema. Skin: Warm, dry. Laboratory Data: Reveals a white blood count of 10.9, hemoglobin 6.9, hematocrit of 48.1, platelet c ount is 385, neutrophils 82%. Her sodium 140, potassium 3.9, chloride 106, carbon dioxide 30, BUN 14 , creatinine 0.8, glucose 107, calcium is 9.7, total bilirubin 1.0, direct component 0.1, AST 39, ALT 53, alkaline phosphatase 160, lipase 98. UA showed only trace blood and trace leukocyte esterase. Her urine test was negative. She had a CT scan performed of abdomen and pelvis which is of ficially read as borderline enlargement of the appendix, given that there is no stranding within the adjacent fat, probably is not significant, however, early appendicitis could also have this appearanc e, this should be clinically correlated. Assessment And Plan: This is a 54-year-old female who comes in with borderline enlargement of the ap pendix, however, left lower quadrant abdominal pain and no clinical signs symptoms of appendicitis. 1.IV fluid hydration. 2.Antibiotic coverage. 3.Serial abdominal exams. 4.This does not seem to be an appendicitis type picture, but rather possibly a colitis type picture. However, will exam her in the morning to see if patient's symptomatology is improved. I have explained the risks, benefits, alternatives the above stated plan, the patient agrees to as indicated . LEE/DUKE Voice ID: [id number]
[2020-02-28 23:10] VITALS: BMI 23.3
[2020-02-29] MEDS ORDERED: PIPER/TAZO/NS 3.375gm 6.750 GM/200 ML BAG ONE (02:49)
[2020-02-29] MEDS: PIPER/TAZO/NS 3.375gm 3.375 GM/100 ML BAG IVPB SCH ×4 (02:50→17:26)
[2020-02-29 04:56] LABS: ALT/SGPT 40 U/L (12-78); AST/SGOT 27 U/L (15-37); Albumin 3.5 g/dL (3.4-5.0); Alkaline Phosphatase 130 U/L (45-117); BUN Blood Urea Nitrogen 9 mg/dL (7-18); Bicarbonate 23 mmol/L (21-32); Bilirubin Direct 0.3 mg/dL (0-0.2); Bilirubin Total 1.5 mg/dL (0.2-1.0); Glucose Level 95 mg/dL (74-106); Lipase 72 U/L (73-393); Potassium 3.5 mmol/L (3.5-5.1); Protein, Total 6.6 g/dL (6.4-8.2); Sodium Level 144 mmol/L (136-145)
[2020-02-29 05:15] LABS: Basophils % 0.7 % (0-1.3); Hematocrit 42.9 % (36.0-45.0); Lymphocytes % 27.3 % (15.3-44.8); MPV 8.9 fL (7.6-11.3); RBC Red Blood Cell Count 4.68 M/uL (3.86-4.86)
[2020-02-29] MEDS: NA CHLORIDE 0.9% 1,000 ML IV SCH ×3 (06:16→22:01)
--- NOTE | 2020-02-29 11:59 | P.PN ---
Subjective Date of Service: 02/29/20 Subjective: No new changes Physical Examination - Vital Signs Temperature: 98.2 F Blood Pressure: 166/77 Pulse: 75 Respirations: 18 Pulse Ox (%): 97 - Physical Exam General: Alert, In no apparent distress, Cooperative Respiratory: Clear to auscultation bilaterally, Normal air movement Cardiovascular: Regular rate/rhythm Gastrointestinal: Other (soft, mild LLQ TTP, minimal RLQ TTP, ND, no rebound, no guarding, no peritoneal signs) Integumentary: No rashes Neurological: Normal speech - Studies Laboratory Data (last 24 hrs) 02/28/20 18:25: Creatinine 0.84 02/28/20 18:25: WBC 10.9, Hgb 16.1 H, Hct 48.1 H, Plt Count 385 02/28/20 18:25: Sodium 140, Potassium 3.9, BUN 14, Creatinine 0.87, Glucose 107 H, Total Bilirubin 1.0, AST 39 H, ALT 53, Alkaline Phosphatase 160 H, Lipase 98 Assessment And Plan - Current Problems (Diagnosis) (1) Colitis Current Visit: Yes Status: Acute Plan: - Repeat CT scan with PO contrast did not show appendicitis, but rather a LEFT sided colitis is suspected - will start PO clears - continue antibiotics - stool studies - serial exams - continue IV hydration
--- NOTE | 2020-02-29 12:01 | RAD REPORT ---
EXAM DESCRIPTION: CT - Abdomen Pelvis W/Wo Contrast - 02/29/2020 11:50 am CLINICAL HISTORY: rule out appendicitis Left lower quadrant abdominal pain and tenderness. COMPARISON: Abdomen Pelvis W Contrast dated 02/28/2020 TECHNIQUE: Axial non-contrast CT imaging was performed. Following this, biphasic contrast enhanced i maging through the abdomen and pelvis was performed with coronal and sagittal reformatted images. All CT scans are performed using dose optimization technique as appropriate and may include automated exposure control or mA/KV adjustment according to patient size. FINDINGS: The lower lung olson are clear. Cholecystectomy. The liver, spleen, pancreas and adrenal glands are normal. No renal mass or hydronephrosis. No perinephric abnormality. No evidence of tract stone. No bowel obstruction, free fluid or abscess. Mild thickening of the distal descending colon sigmoid c olon in the left lower quadrant is present. This suggests mild colitis. The appendix appears normal i n thickness. No findings for appendicitis. No fracture or aggressive marrow process is seen. IMPRESSION: Mild colitis of the distal descending and sigmoid colon suspected. No evidence of append icitis.
[2020-02-29 21:53] VITALS: O2SAT 98
[2020-03-01] MEDS: PIPER/TAZO/NS 3.375gm 3.375 GM/100 ML BAG IVPB SCH (00:16)
[2020-03-01 05:04] VITALS: BP 134/66; TEMP 96.7
[2020-03-01] MEDS: NA CHLORIDE 0.9% 1,000 ML IV SCH (05:52)
== END 2020-03-01 08:26 | disposition home or self-care (01) ==
LOC: ER 17:33 → 2ND 21:31
PROVIDERS: ADMIT Surgery; ATTEND Surgery
DX: K52.9 Noninfective gastroenteritis and colitis, unspecified (principal); I10 Essential (primary) hypertension; J45.909 Unspecified asthma, uncomplicated; Z90.49 Acquired absence of other specified parts of digestive tract; Z88.1 Allergy status to other antibiotic agents; Z88.3 Allergy status to other anti-infective agents
CPT/HCPCS: 96365; 96361; 87045; 85025 ×2; 80048 ×2; 36415; 89055; 81025; 80076 ×2; 87046; 83690 ×2; 74177; 74178; 97116; 97161; 99285; Q9967 ×2; J0360; J2543 ×2; J7030 ×5; G0378 ×3; 81003; 81015; J2405; J2550

== ENCOUNTER 2020-05-09 09:31 | Day surgery (SDC) | payer BC ==
[2020-05-09] MEDS ORDERED: Ringers Lactate 1,000 ML IV ONE (09:54)
--- OUTSIDE RECORDS SUMMARY | 2020-05-09 10:02 | XMS REPORT | Continuity of Care Document ---
:[address] [facility] t Address [address] [place] [address] Care Team Providers Name Role Phone Abran Haddad Attending Clinician Problems This patient has no known problems. Allergies, Adverse Reactions, Alerts This patient has no known allergies or adverse reactions. Medications This patient has no known medications. Procedures This patient has no known procedures. Encounters Start End Encounter Admission Attending Care Care Encounter Source Date/Time Date/Time Type Type Clinicians Facility Department ID 2020-02-28 2020-02-28 [facility] [id number] 09:23:00 23:59:00 Encounter [facility] [id number] Surgical [id number] Specialti [id number] es 809 Max 2020-02-28 2020-02-28 [facility] [id number] 08:47:48 09:02:48 Visit [facility] [id number] Surgical [id number] Specialti [id number] es 198 [place]zer Results This patient has no known results.
[2020-05-09] MEDS ORDERED: propofoL 200 MG/20 ML VIAL IV ONE (10:34)
[2020-05-09] MEDS ORDERED: LIDOCAINE 1% MPF 5 ML VIAL ONE (10:35)
[2020-05-09 12:08] VITALS: BP 139/81; TEMP 96.7; O2SAT 98
== END 2020-05-09 11:50 | disposition home or self-care (01) ==
LOC: OR 09:31
PROVIDERS: ATTEND Surgery
PROC: 0DBN8ZX Excision of Sigmoid Colon, Via Natural or Artificial Opening Endoscopic, Diagnostic (ICD-10-PCS; principal; 2020-05-09 13:00)
DX: Z12.11 Encounter for screening for malignant neoplasm of colon (principal); K62.1 Rectal polyp; K63.89 Other specified diseases of intestine; Z11.59 Encounter for screening for other viral diseases; I10 Essential (primary) hypertension; J45.909 Unspecified asthma, uncomplicated; Z79.899 Other long term (current) drug therapy
CPT/HCPCS: 88305; 45380; U0002; J2704; J7120

== ENCOUNTER 2020-12-10 09:19 | Emergency (ER) | payer BC ==
[2020-12-10] MEDS ORDERED: NA CHLORIDE 0.9% 1,000 ML ONE (10:50)
[2020-12-10] MEDS ORDERED: MORPHINE 4 MG/ML SYR ONE (10:50)
[2020-12-10] MEDS ORDERED: ONDANSETRON 4 MG/2 ML VIAL ONE ×2 (10:50→13:10)
[2020-12-10 10:54] LABS: Absolute Lymphocytes (CBC) 0.9 K/uL (0.7-4.9); Basophils % 0.2 % (0-1.3); Hematocrit 43.5 % (36.0-45.0); Lymphocytes % 6.6 % (15.3-44.8); RBC Red Blood Cell Count 4.87 M/uL (3.86-4.86)
[2020-12-10 11:14] LABS: Albumin 4.2 g/dL (3.4-5.0); Bilirubin Direct 0.2 mg/dL (0-0.2); Bilirubin Total 1.3 mg/dL (0.2-1.0); Potassium 3.1 mmol/L (3.5-5.1); Protein, Total 7.6 g/dL (6.4-8.2)
--- NOTE | 2020-12-10 11:18 | RAD REPORT ---
EXAM DESCRIPTION: CTAbdomen Pelvis W Contrast - 12/10/2020 10:54 am CLINICAL HISTORY: Abdominal pain. ABD PAIN COMPARISON: Abdomen Pelvis W Contrast dated 03/19/2020; Abdomen Pelvis W Contrast dated 02/28/2020 ; Cholangiogram dated 04/24/2020 TECHNIQUE: Biphasic CT imaging of the abdomen and pelvis was performed with 100 ml non-ionic IV cont rast. All CT scans are performed using dose optimization technique as appropriate and may include automated exposure control or mA/KV adjustment according to patient size. FINDINGS: The lung bases are clear.Cholecystectomy clips. The liver, spleen, pancreas, adrenal glands and kidneys are within normal limits. No bowel obstruction, free air, free fluid or abscess. Several mildly thickened small bowel loops in the left upper quadrant is seen. The appendix is enlarged measuring up to to 13 mm with internal inte rmediate density material. No surrounding inflammatory changes are seen. This may indicate a mucocele of the appendix. No evidence of significant lymphadenopathy. Mild lumbosacral degenerative changes. IMPRESSION: Several thickened small bowel loops in the left upper quadrant may represent enteritis. Enlarged appendix to 13 mm without surrounding inflammation, suggesting a mucocele.
[2020-12-10 12:14] LABS: Blood Morphology Comment NOT SEEN (NOT SEEN); Platelet Estimate ADEQ; White Blood Cell Scan OK (OK)
[2020-12-10 12:23] LABS: Urine Blood NEGATIVE (NEG); Urine Glucose NEGATIVE (NEG); Urine Protein NEGATIVE (NEG); Urine Specific Gravity 1.015 (1.005-1.030)
--- NOTE | 2020-12-10 12:47 | EDPHYS ---
Physician Documentation [facility] Name: Elisa Silva Age: 55 yrs Sex: Female : 1965 Arrival Date: 12/10/2020 Time: 09:23 Bed 19 Private MD: Donta Bueno R ED Physician Kvng Goins HPI: 12/10 10:38 This 55 yrs old Female presents to ER via Ambulatory with complaints of pm1 Abdominal Pain. 10:38 The patient presents with abdominal pain right lower quadrant. Onset: The pm1 symptoms/episode began/occurred today. The symptoms do not radiate. Associated signs and symptoms: Pertinent positives: nausea, vomiting, and diarrhea, Pertinent negatives: chest pain, constipation, shortness of breath. The symptoms are described as sharp. Modifying factors: The symptoms are alleviated by nothing, the symptoms are aggravated by walking. Severity of pain: in the emergency department the pain is actually worse. The patient has experienced similar episodes in the past, a few times. Has seen Dr. Lazo last year for similar complaint and had discussed some plans to repair umbilical hernia and remove appendix. Patient with insurance changes so patient elected not to get surgery at that time. Historical: - Allergies: 09:26 erythromycin lactobionate; sv 09:26 Macrolide Antibiotics; sv - PMHx: 09:26 Asthma; Hypertension; sv - PSHx: 09:26 Tubal ligation; Hysterectomy; sv - Immunization history:: Flu vaccine is not up to date. - Social history:: Smoking status: Patient denies any tobacco usage or history of. ROS: 10:42 Constitutional: Negative for fever, chills, and weight loss, Cardiovascular: Negative pm1 for chest pain, palpitations, and edema, Respiratory: Negative for shortness of breath, cough, wheezing, and pleuritic chest pain. 10:42 Back: Negative for injury and pain, : Negative for injury, bleeding, discharge, and swelling, MS/Extremity: Negative for injury and deformity, Skin: Negative for injury, rash, and discoloration, Neuro: Negative for headache, weakness, numbness, tingling, and seizure. 10:42 Abdomen/GI: Positive for abdominal pain, nausea, vomiting, and diarrhea, of the right lower quadrant, Negative for constipation. Exam: 10:42 Constitutional: This is a well developed, well nourished patient who is awake, alert, pm1 and in no acute distress. Head/Face: Normocephalic, atraumatic. 10:42 Back: No spinal tenderness. No costovertebral tenderness. Full range of motion. Skin: Warm, dry with normal turgor. Normal color with no rashes, no lesions, and no evidence of cellulitis. MS/ Extremity: Pulses equal, no cyanosis. Neurovascular intact. Full, normal range of motion. 10:42 Cardiovascular: Exam negative for acute changes, Rate: normal, Rhythm: regular, Pulses: no pulse deficits are appreciated. 10:42 Respiratory: Exam negative for acute changes, respiratory distress, shortness of breath. 10:42 Abdomen/GI: Inspection: abdomen appears normal, Palpation: soft, in all quadrants, moderate abdominal tenderness, in the right lower quadrant, rebound tenderness, is not appreciated. 10:42 Neuro: Exam negative for acute changes, Orientation: is normal, Mentation: is normal, Motor: is normal, moves all fours. Vital Signs: 09:26 BP 143 / 82; Pulse 76; Resp 18; Temp 98.6(TE); Pulse Ox 100% ; Weight 63.5 kg; Height 5 sv ft. 8 in. (172.72 cm); Pain 8/10; 11:13 BP 132 / 86; Pulse 72; Resp 18; Pulse Ox 98% on R/A; ph 12:30 BP 126 / 76; Pulse 70; Resp 18; Temp 97.8; Pulse Ox 99% on R/A; ph 09:26 Body Mass Index 21.29 (63.50 kg, 172.72 cm) sv MDM: 10:24 Patient medically screened. pm1 10:43 Data reviewed: vital signs. Data interpreted: Pulse oximetry: on room air is 100 %. pm1 Interpretation: normal. 12:45 Counseling: I had a detailed discussion with the patient and/or guardian regarding: the pm1 historical points, exam findings, and any diagnostic results supporting the discharge/admit diagnosis, lab results, radiology results, the need for outpatient follow up, to return to the emergency department if symptoms worsen or persist or if there are any questions or concerns that arise at home. 12/10 10:25 Order name: Basic Metabolic Panel; Complete Time: 11:27 pm1 12/10 10:25 Order name: CBC with Diff; Complete Time: 12:26 pm1 12/10 10:25 Order name: Hepatic Function; Complete Time: 11:27 pm1 12/10 10:25 Order name: Lipase; Complete Time: 11:27 pm1 12/10 10:59 Order name: CBC Smear Scan; Complete Time: 12:26 EDMS 12/10 12:07 Order name: Urine Dipstick--Ancillary (enter results); Complete Time: 12:26 bd 12/10 10:25 Order name: IV Saline Lock; Complete Time: 11:11 pm1 12/10 10:25 Order name: CT Abd/Pelvis - IV Contrast Only; Complete Time: 11:27 pm1 12/10 10:25 Order name: Labs collected and sent; Complete Time: 11: pm1 12/10 10:25 Order name: Urine Dipstick-Ancillary (obtain specimen); Complete Time: 11:01 pm1 Administered Medications: 10:45 Drug: NS 0.9% 1000 ml Route: IV; Rate: 1000 ml; Site: right antecubital; ph 13:00 Follow up: Response: No adverse reaction; IV Status: Completed infusion; IV Intake: ph 1000ml 10:45 Drug: Zofran (Ondansetron) 4 mg Route: IVP; Site: right antecubital; ph 13:00 Follow up: Response: No adverse reaction ph 10:47 Drug: morphine 4 mg Route: IVP; Site: right antecubital; ph 13:00 Follow up: Response: No adverse reaction; Pain is decreased ph 12:57 Drug: Zofran (Ondansetron) 4 mg Route: IVP; Site: right antecubital; ph 13:00 Follow up: Response: No adverse reaction ph 12:59 Drug: Flagyl 500 mg Volume: 100 ml; Route: IVPB; Rate: 200 ml/hr; Infused Over: 30 ph mins; Site: right antecubital; 14:00 Follow up: Response: No adverse reaction; IV Status: Completed infusion ph 12:59 Drug: Cipro 500 mg Route: PO; ph 15:00 Follow up: Response: No adverse reaction ph Disposition: 14:51 Co-signature as Attending Physician, Kvng Goins MD. rn Disposition: 12/10/20 12:47 Discharged to Home. Impression: Enteritis, Vomiting, Diarrhea, unspecified. - Condition is Stable. - Discharge Instructions: Food Choices to Help Relieve Diarrhea, Adult, Diarrhea, Adult, Nausea and Vomiting, Adult. - Prescriptions for Zofran ODT 4 mg Oral tablet,disintegrating - take 1 tablet by ORAL route every 8 hours As needed; 20 tablet. Bentyl 20 mg Oral Tablet - take 1 tablet by ORAL route every 6 hours As needed; 20 tablet. Flagyl 500 mg Oral Tablet - take 1 tablet by ORAL route every 8 hours for 10 days; 30 tablet. Cipro 500 mg Oral Tablet - take 1 tablet by ORAL route every 12 hours for 10 days; 20 tablet. - Medication Reconciliation Form, Thank You Letter, Antibiotic Education, Prescription Opioid Use form. - Follow up: Emergency Department; When: As needed; Reason: Worsening of condition. Follow up: Private Physician; When: 2 - 3 days; Reason: Recheck today's complaints, Continuance of care, Re-evaluation by your physician. Follow up: Donta Bueno MD; When: 2 - 3 days; Reason: Recheck today's complaints, Continuance of care, Re-evaluation by your physician. - Problem is new. - Symptoms have improved. Signatures: Dispatcher [employer] Susanne Markham RN RN Kvng Lind MD MD rn Hall, Patricia, RN RN ph Marinas, Patrick, NP BRILLIANDEER LOOPER pm1 Corrections: (The following items were deleted from the chart) 11:11 10:25 Urine Test ordered. pm1 ph 14:15 12:47 12/10/2020 12:47 Discharged to Home. Impression: EnteritisVomiting; Diarrhea, ph unspecified. Condition is Stable. Forms are Medication Reconciliation Form, Thank You Letter, Antibiotic Education, Prescription Opioid Use. Follow up: Emergency Department; When: As needed; Reason: Worsening of condition. Follow up: Private Physician; When: 2 - 3 days; Reason: Recheck today's complaints, Continuance of care, Re-evaluation by your physician. Follow up: Donta Bueno; When: 2 - 3 days; Reason: Recheck today's complaints, Continuance of care, Re-evaluation by your physician. Problem is new. Symptoms have improved. pm1 14:17 14:15 12/10/2020 12:47 Discharged to Home. Impression: EnteritisVomiting; Diarrhea, ph unspecified. Condition is Stable. Discharge Instructions: Food Choices to Help Relieve Diarrhea, Adult, Diarrhea, Adult, Nausea and Vomiting, Adult. Prescriptions for Zofran ODT 4 mg Oral tablet,disintegrating - take 1 tablet by ORAL route every 8 hours As needed; 20 tablet, Bentyl 20 mg Oral Tablet - take 1 tablet by ORAL route every 6 hours As needed; 20 tablet, Flagyl 500 mg Oral Tablet - take 1 tablet by ORAL route every 8 hours for 10 days; 30 tablet, Cipro 500 mg Oral Tablet - take 1 tablet by ORAL route every 12 hours for 10 days; 20 tablet. and Forms are Medication Reconciliation Form, Thank You Letter, Antibiotic Education, Prescription Opioid Use. Follow up: Emergency Department; When: As needed; Reason: Worsening of condition. Follow up: Private Physician; When: 2 - 3 days; Reason: Recheck today's complaints, Continuance of care, Re-evaluation by your physician. Follow up: Donta Bueno; When: 2 - 3 days; Reason: Recheck today's complaints, Continuance of care, Re-evaluation by your physician. Problem is new. Symptoms have improved. ph
--- NOTE | 2020-12-10 12:47 | ER ---
Nurse's Notes [facility] Name: Elisa Silva Age: 55 yrs Sex: Female : 1965 Arrival Date: 12/10/2020 Time: 09:23 Bed 19 Private MD: Donta Bueno R Diagnosis: Vomiting;Diarrhea, unspecified;Enteritis Presentation: 12/10 09:25 Chief complaint: Patient states: RUQ pain, n/v started this morning. Reports she has an sv enlarged appendix. Coronavirus screen: Client denies travel out of the [place] in the last 14 days. At this time, the client does not indicate any symptoms associated with coronavirus-19. Ebola Screen: No symptoms or risks identified at this time. Risk Assessment: Do you want to hurt yourself or someone else? Patient reports no desire to harm self or others. Onset of symptoms was December 10, 2020. 09:25 Method Of Arrival: Ambulatory sv 09:25 Acuity: JACKSON 3 sv 09:26 Initial Sepsis Screen: Does the patient meet any 2 criteria? No. Patient's initial sv sepsis screen is negative. Does the patient have a suspected source of infection? No. Patient's initial sepsis screen is negative. Triage Assessment: 09:28 General: Appears in no apparent distress. uncomfortable, Behavior is calm, cooperative, sv appropriate for age. Pain: Complains of pain in right upper quadrant Pain currently is 8 out of 10 on a pain scale. Neuro: Level of Consciousness is awake, alert, obeys commands, Oriented to person, place, time, situation, Gait is steady. Respiratory: Respiratory effort is even, unlabored. GI: Reports upper abdominal pain, nausea, vomiting. Historical: - Allergies: 09:26 erythromycin lactobionate; sv 09:26 Macrolide Antibiotics; sv - PMHx: 09:26 Asthma; Hypertension; sv - PSHx: 09:26 Tubal ligation; Hysterectomy; sv - Immunization history:: Flu vaccine is not up to date. - Social history:: Smoking status: Patient denies any tobacco usage or history of. Screenin:18 Abuse screen: Denies threats or abuse. Denies injuries from another. Nutritional ph screening: No deficits noted. Tuberculosis screening: No symptoms or risk factors identified. Fall Risk None identified. Assessment: 10:25 General: Appears in no apparent distress. uncomfortable, well groomed, Behavior is ph calm, cooperative, appropriate for age, Denies fever. Pain: Complains of pain in right upper quadrant and right lower quadrant. Neuro: Level of Consciousness is awake, alert, obeys commands, Oriented to person, place, time, situation. Cardiovascular: Capillary refill < 3 seconds in bilateral fingers Patient's skin is warm and dry. Respiratory: Airway is patent Respiratory effort is even, unlabored, Respiratory pattern is regular, symmetrical. GI: Abdomen is round non-distended, Abd is soft X 4 quads Abdomen is tender to palpation in right upper quadrant and right lower quadrant Reports lower abdominal pain, upper abdominal pain, diarrhea, nausea, vomiting. Derm: Skin is intact, is healthy with good turgor, Skin is pink, warm \T\ dry. Musculoskeletal: Circulation, motion, and sensation intact. Range of motion: intact in all extremities. 11:12 Reassessment: Patient appears in no apparent distress at this time. Patient and/or ph family updated on plan of care and expected duration. Pain level reassessed. Patient is alert, oriented x 3, equal unlabored respirations, skin warm/dry/pink. 12:00 Reassessment: Patient appears in no apparent distress at this time. Patient and/or ph family updated on plan of care and expected duration. Pain level reassessed. Patient is alert, oriented x 3, equal unlabored respirations, skin warm/dry/pink. 13:01 Reassessment: Patient appears in no apparent distress at this time. Patient and/or ph family updated on plan of care and expected duration. Pain level reassessed. Patient is alert, oriented x 3, equal unlabored respirations, skin warm/dry/pink. D/C pending completion of IV antibiotics. Vital Signs: 09:26 BP 143 / 82; Pulse 76; Resp 18; Temp 98.6(TE); Pulse Ox 100% ; Weight 63.5 kg; Height 5 sv ft. 8 in. (172.72 cm); Pain 8/10; 11:13 BP 132 / 86; Pulse 72; Resp 18; Pulse Ox 98% on R/A; ph 12:30 BP 126 / 76; Pulse 70; Resp 18; Temp 97.8; Pulse Ox 99% on R/A; ph 09:26 Body Mass Index 21.29 (63.50 kg, 172.72 cm) sv ED Course: 09:23 Patient arrived in ED. mr 09:24 Donta Bueno MD is Private Physician. mr 09:25 Arm band placed on. sv 09:26 Triage completed. sv 10:18 Mariam Celeste RN is Primary Nurse. ph 10:18 Arnaud Temple NP is PHCP. pm1 10:18 Kvng Goins MD is Attending Physician. pm1 10:18 Patient has correct armband on for positive identification. Placed in gown. Bed in low ph position. Call light in reach. Side rails up X 1. Pulse ox on. NIBP on. 10:40 Initial lab(s) drawn, by me, sent to lab. Inserted saline lock: 20 gauge in right ph antecubital area, using aseptic technique. Blood collected. 10:54 CT Abd/Pelvis - IV Contrast Only In Process Unspecified. EDMS 12:47 Donta Bueno MD is Referral Physician. pm1 13:02 No provider procedures requiring assistance completed. ph 14:15 IV discontinued, intact, bleeding controlled, No redness/swelling at site. Pressure ph dressing applied. Administered Medications: 10:45 Drug: NS 0.9% 1000 ml Route: IV; Rate: 1000 ml; Site: right antecubital; ph 13:00 Follow up: Response: No adverse reaction; IV Status: Completed infusion; IV Intake: ph 1000ml 10:45 Drug: Zofran (Ondansetron) 4 mg Route: IVP; Site: right antecubital; ph 13:00 Follow up: Response: No adverse reaction ph 10:47 Drug: morphine 4 mg Route: IVP; Site: right antecubital; ph 13:00 Follow up: Response: No adverse reaction; Pain is decreased ph 12:57 Drug: Zofran (Ondansetron) 4 mg Route: IVP; Site: right antecubital; ph 13:00 Follow up: Response: No adverse reaction ph 12:59 Drug: Flagyl 500 mg Volume: 100 ml; Route: IVPB; Rate: 200 ml/hr; Infused Over: 30 ph mins; Site: right antecubital; 14:00 Follow up: Response: No adverse reaction; IV Status: Completed infusion ph 12:59 Drug: Cipro 500 mg Route: PO; ph 15:00 Follow up: Response: No adverse reaction ph Intake: 13:00 IV: 1000ml; Total: 1000ml. ph Outcome: 12:47 Discharge ordered by . pm1 14:15 Patient left the ED. ph 14:15 Discharged to home ambulatory. ph 14:15 Condition: good 14:15 Discharge instructions given to patient, Instructed on discharge instructions, follow up and referral plans. medication usage, Demonstrated understanding of instructions, follow-up care, medications, Prescriptions given X 4. 14:17 Patient left the ED. ph Signatures: Dispatcher [employer] EDSusanne Deleon RN RN sv Rivera, Mary mr Hall, Patricia, RN RN ph Marinas, Patrick, [employer] pm1
[2020-12-10] MEDS ORDERED: METRONIDAZOLE 500mg IVPB 500 MG/100 ML BAG IV ONE (13:10)
[2020-12-10] MEDS ORDERED: CIPROFLOXACIN HCL 500 MG TAB ONE (13:10)
[2020-12-10 14:54] VITALS: BP 126/76; TEMP 97.8; O2SAT 99
== END 2020-12-10 14:17 | disposition home or self-care (01) ==
LOC: ER 09:19
DX: K52.9 Noninfective gastroenteritis and colitis, unspecified (principal); J45.909 Unspecified asthma, uncomplicated; I10 Essential (primary) hypertension
CPT/HCPCS: 96365; 96361; 85025; 80048; 36415; 82565; 80076; 81003; 83690; 74177; 96375; 99284; Q9967; J7030; J2405 ×2

== ENCOUNTER 2020-12-24 08:09 | Observation (INO) | payer BC ==
[2020-12-24] MEDS ORDERED: propofoL 200 MG/20 ML VIAL IV ONE (08:35)
[2020-12-24] MEDS ORDERED: MIDAZOLAM HCL 2 MG/2 ML INJ ONE (08:35)
[2020-12-24] MEDS ORDERED: FENTANYL CITR 100 MCG/2 ML ONE (08:35)
[2020-12-24] MEDS ORDERED: ROCURONIUM 50 MG/5 ML VIAL IV ONE (08:36)
[2020-12-24] MEDS ORDERED: LIDOCAINE 1% MPF 30 ML VIAL ONE (08:37)
[2020-12-24 08:50] LABS: Basophils % 0.7 % (0-1.3); Hematocrit 42.3 % (36.0-45.0); Lymphocytes % 29.6 % (15.3-44.8); MPV 9.1 fL (7.6-11.3); RBC Red Blood Cell Count 4.72 M/uL (3.86-4.86)
[2020-12-24 08:58] LABS: Albumin 3.7 g/dL (3.4-5.0); Bilirubin Direct 0.2 mg/dL (0-0.2); Bilirubin Total 1.1 mg/dL (0.2-1.0); Potassium 3.7 mmol/L (3.5-5.1); Protein, Total 7.3 g/dL (6.4-8.2)
[2020-12-24] MEDS ORDERED: Ringers Lactate 1,000 ML IV ONE ×2 (09:10→10:33)
[2020-12-24] MEDS ORDERED: SCOPOLAMINE HYDROBROMIDE PATCH TD ONE (09:22)
[2020-12-24] MEDS ORDERED: CEFOXITIN/SWI 1gm 1 GM/10 ML SYR ONE (09:24)
[2020-12-24] MEDS ORDERED: dexAMETHasone 10 MG/ML VIAL ONE (09:49)
--- NOTE | 2020-12-24 10:24 | P.BOP ---
Preoperative diagnosis: RLQ abd pain Postoperative diagnosis: same, acute suppurative appendicitis, extensive adhesions, hernia Primary procedure: 1. Laparoscopic appendectomy Secondary procedure: 2. Laparoscopic extensive SHE Other procedure(s): 3. Open repair of incisional tender umbilical hernia Estimated blood loss: <20cc Specimen: appendix, hernia sac Findings: see dictation Anesthesia: General Complications: None Drain(s): LOGAN drain Transferred to: Recovery Room Condition: Good
[2020-12-24] MEDS ORDERED: SODIUM CHLORIDE 0.9% 10ML INJ IV PRN (10:25)
[2020-12-24] MEDS ORDERED: ONDANSETRON 4 MG/2 ML VIAL ONE (10:26)
[2020-12-24] MEDS ORDERED: GLYCOPYRROLATE 0.2 MG/ML SYR ONE (10:27)
[2020-12-24] MEDS ORDERED: NEOSTIGMINE 1 MG/ML -5 ML ONE (10:27)
[2020-12-24] MEDS ORDERED: MEPERIDINE HCL 25 MG/ML SYR ONE (10:59)
--- NOTE | 2020-12-24 12:06 | OP ---
Date of Procedure: 12/24/2020 Surgeon: Quan Lazo MD Preoperative Diagnoses: Right lower quadrant abdominal pain, abnormal appendix. Postoperative Diagnoses: Acute suppurative appendicitis, extensive intraabdominal adhesions, incisio nal umbilical hernia. Procedures: 1.Laparoscopic appendectomy. 2.Laparoscopic extensive lysis of adhesions. 3.Open repair of incisional and tender umbilical hernia. Specimen: Appendix, hernia sac. Findings: The patient has suppurative appendicitis, intraabdominal adhesions in the lower abdomen. Drain: LOGAN #10. Indications: This is a case of a 55-year-old patient who comes with abdominal pain, right lower quad rant. She was seen several months ago and since they have an abnormal shape of the appendix, she was advised to have diagnostic lap and appendectomy. She has not been able to do that yet as recommende d by us. Recently, she shows in the ER. I was not called for that, but they were seen by the ER tanvir willingham and she was sent home with an appointment in my office. When I see the patient, I explained t o her the importance once again regardless of pain or not that she feels she still has to remove that appendix because it is abnormal and not only we want to rule out bacterial infection, but also tumor in that area. She had an endoscopy done previously by another surgeon, but the appendix was not done. She comes to me now and that she wants me to have this done and I gladly accept to do so with the plan for diagnostic lap, laparoscopic, possible open appendectomy and repair of a tender incisional hernia with benefits, alternatives, and risks including, but not limited to infection, ble eding, damage to adjacent structures, anesthesia complication, negative exploration, [place], and even gokul th. She also understands this may not relieve the symptoms. She might need more than one surgical i ntervention. She understood and signed a consent. Description Of Procedure: The patient was brought to the operating room, placed in supine position. Anesthesia was done without complication. Abdominal area was prepped and draped in sterile fashion. Marcaine 0.5% was injected for local anesthetic followed by sharp incision of the skin in the infra umbilical region. Incision was carried down to fascia. We noticed the patient had an umbilical samuel ia with incarcerated omentum. The umbilical hernia was then dissected free. The hernia sac removed from the skin, opened, omentum seemed to be viable, so we removed the hernia sac and retract the omen karli after fully inspecting. We extended incision to accommodate Chloe trocar. We placed Vicryl #1 inside the fascia. Chloe trocar was carefully introduced. No bleeding was obtained. At that momen t, I proceeded to put the cameras in. We noticed this inflammation in the right lower quadrant, so w e went ahead and put a 5 mm trocar in the suprapubic and left lower quadrant under direct visualizati on. We started first with diagnostic lap. The liver seems to be intact with no masses at least ante riorly and extra capsule. Stomach soft and compressible. Ascending colon with no inflammation, but then in the area of the pelvis, we see a lot of scar tissue there from previous surgery in that regio n. So, we opened the ligature to be able to get those adhesions down because we could not see the ap pendix at this moment until we visualized the appendix and noticed the patient has this suppurative a ppendix mixed in between the adhesions and covered with adhesions. Once we have the area out, we wer e able to identify the base of the appendix. The entire appendix was involved with suppuration excep t the base of the cecum and that is why we transected with an Endo DINA 45 mm 3.5 and the mesoappendix with an Endo DINA 45 mm 2.5. Appendix was removed from abdominal cavity using EndoCatch through umbi lical incision and irrigation was done of the area with several L of fluid until clear. I proceeded to leave a LOGAN drain in that region and exiting to one of the trocar sites and secured in place with 3 -0 nylon. We inspected the area once again, no bleeding. The area of the lysis of adhesions, no ble eding. At that moment, I proceeded to remove the trocars and removed the trocars under direct vision and deflated pneumoperitoneum, closed the fascia with #1 Vicryl and umbilical hernia with #1 Vicryl. Irrigated subcutaneous tissue, closed that with 3-0 chromic and skin approximated. LOGAN connected to bulb suction. The patient tolerated the procedure well. The patient was sent to recovery in stable condition. This patient will be admitted to the hospital for IV antibiotics, bowel rest, and pain control. HM/MODL Voice ID: [id number] Report ID: [id number]
[2020-12-24] MEDS: NA CHLORIDE 0.9% 1,000 ML IV SCH (13:35)
[2020-12-24] MEDS ORDERED: METRONIDAZOLE 500mg IVPB 500 MG/100 ML BAG IV ONE (13:44)
[2020-12-24 14:50] VITALS: O2SAT 96
--- OUTSIDE RECORDS SUMMARY | 2020-12-24 15:28 | XMS REPORT | Continuity of Care Document ---
:1965 Author Organization [facility] t Address [address] [place] [address] Care Team Providers Name Role Phone Eleanor Posey MD Attending Clinician Problems This patient has no known problems. Allergies, Adverse Reactions, Alerts This patient has no known allergies or adverse reactions. Medications This patient has no known medications. Procedures This patient has no known procedures. Encounters Start End Encounter Admission Attending Care Care Encounter Source Date/Time Date/Time Type Type Clinicians Facility Department ID 2020-06-22 2020-06-22 Telephone [facility] [id number] 00:00:00 00:00:00 Kristyn Santana [id number] [place] [id number] [facility] [phone] [address] Building 2020-06-11 2020-06-11 [facility] [id number] 10:42:23 12:07:48 Visit Kristyn Santana [id number] [place] [id number] [facility] [phone] [address] [facility] Results This patient has no known results.
[2020-12-24] MEDS: METRONIDAZOLE 500mg IVPB 500 MG/100 ML BAG IV SCH ×3 (16:01→18:00)
[2020-12-24] MEDS: CIPROFLOXACIN 400mg IV 400 MG/200 ML BAG IV SCH ×2 (16:03→21:06)
[2020-12-24 17:36] VITALS: BMI 21.2
[2020-12-25] MEDS: METRONIDAZOLE 500mg IVPB 500 MG/100 ML BAG IV SCH (00:45)
[2020-12-25 06:17] LABS: Absolute Lymphocytes (CBC) 1.3 K/uL (0.7-4.9); Basophils % 0.7 % (0-1.3); Hematocrit 41.3 % (36.0-45.0); Lymphocytes % 10.1 % (15.3-44.8); MPV 8.9 fL (7.6-11.3); RBC Red Blood Cell Count 4.56 M/uL (3.86-4.86)
[2020-12-25] MEDS: NA CHLORIDE 0.9% 1,000 ML IV SCH ×2 (06:18→10:00)
[2020-12-25 06:26] LABS: BUN Blood Urea Nitrogen 9 mg/dL (7-18); Bicarbonate 25 mmol/L (21-32); Glucose Level 123 mg/dL (74-106); Potassium 4.4 mmol/L (3.5-5.1); Sodium Level 141 mmol/L (136-145)
[2020-12-25] MEDS: CIPROFLOXACIN 400mg IV 400 MG/200 ML BAG IV SCH (08:46)
[2020-12-25] MEDS ORDERED: PANTOPRAZOLE 40 MG INJ IVP SCH (09:00)
--- NOTE | 2020-12-25 10:01 | DS ---
Diagnoses: Acute suppurative appendicitis, intraabdominal adhesions, umbilical hernia. Procedures: Laparoscopic appendectomy, laparoscopic lysis of adhesions, open repair of umbilical her kadi. History Of Present Illness: This is the case of a 55-year-old patient with above diagnoses and under went the procedures as above uneventfully. The patient kept off pain control and IV antibiotics over night. The patient feels better right now, tolerating diet. The patient will be discharged home aft er she tolerates the diet completely. Follow up in my office in 1 week, call for appointment at [phone]. Keep the area dry for 48 hours, then may shower. LOGAN drain to record output every 24 hours. Medications: Include Cipro 500 p.o. q.12 and Tylenol No. 3 q.4 hours p.r.n. pain. ISAMAR/DUKE Voice ID: [id number] Report ID: [id number]
[2020-12-25 12:41] VITALS: BP 142/65; TEMP 98.9
== END 2020-12-25 13:32 | disposition home or self-care (01) ==
LOC: OR 08:09 → 2ND 15:25
PROVIDERS: ADMIT Surgery; ATTEND Surgery
PROC: 0DTJ4ZZ Resection of Appendix, Percutaneous Endoscopic Approach (ICD-10-PCS; principal; 2020-12-24 09:45)
PROC: 0WQF0ZZ Repair Abdominal Wall, Open Approach (ICD-10-PCS; 2020-12-24 09:45)
PROC: 0DNW4ZZ Release Peritoneum, Percutaneous Endoscopic Approach (ICD-10-PCS; 2020-12-24 09:45)
DX: K35.80 Unspecified acute appendicitis (principal); K42.9 Umbilical hernia without obstruction or gangrene; K66.0 Peritoneal adhesions (postprocedural) (postinfection); I10 Essential (primary) hypertension; Z90.710 Acquired absence of both cervix and uterus; Z88.3 Allergy status to other anti-infective agents; Z20.822 Contact with and (suspected) exposure to COVID-19
CPT/HCPCS: 85025 ×2; 80048 ×2; 36415; 82150; 82947; 80076; 88302; 88304; 94010 ×2; 44970; 49585; 49329; U0002; J2704; C9113; J2250; J3010; J1100; J2175; J2710; J7120 ×2; J7030 ×2; J2405; J0744 ×3; G0379; G0378 ×3

== ENCOUNTER 2021-03-07 13:55 | Day surgery (SDC) | payer BC ==
[2021-03-04 12:00] LABS: Absolute Lymphocytes (CBC) 2.7 K/uL (0.7-4.9); Basophils % 0.7 % (0-1.3); Hematocrit 48.7 % (36.0-45.0); Lymphocytes % 46.5 % (15.3-44.8); MPV 9.2 fL (7.6-11.3); RBC Red Blood Cell Count 5.37 M/uL (3.86-4.86)
[2021-03-04 12:11] LABS: Protime INR 0.96
[2021-03-04 12:14] LABS: Potassium 3.6 mmol/L (3.5-5.1)
--- NOTE | 2021-03-04 12:20 | RAD REPORT ---
EXAM DESCRIPTION: RAD - Chest Pa And Lat (2 Views) - 03/04/2021 11:46 am CLINICAL HISTORY: preop Chest pain. COMPARISON: Chest Pa And Lat (2 Views) dated 05/11/2018; Chest Pa And Lat (2 Views) dated 04/08/2018; C hest Single View dated 12/03/2016; CHEST PA AND LAT 2 VIEW dated 09/11/2015 FINDINGS: The lungs are clear. The heart is normal in size. No displaced fractures. IMPRESSION: No acute or concerning finding suspected.
[2021-03-04 13:15] LABS: Blood Morphology Comment NOT SEEN (NOT SEEN); Platelet Estimate ADEQ
[2021-03-07] MEDS ORDERED: HEPA 1000U/500MLS 2,000 UNIT/1,000 ML BAG IV ONE (14:08)
[2021-03-07] MEDS ORDERED: HEPARIN 5000 UNIT/ML 1 ML VIAL ONE (14:08)
[2021-03-07] MEDS ORDERED: HEPARIN 10,000 UNIT/10 ML VIAL IV ONE (14:09)
[2021-03-07] MEDS ORDERED: ATROPINE SULF 1 MG/10 ML SYR IV ONE (14:09)
[2021-03-07] MEDS ORDERED: VERAPAMIL HCL 10 MG/4 ML VIAL IV ONE (14:09)
[2021-03-07] MEDS ORDERED: FENTANYL CITR 100 MCG/2 ML ONE (14:09)
[2021-03-07] MEDS ORDERED: MIDAZOLAM HCL 2 MG/2 ML INJ ONE (14:09)
[2021-03-07] MEDS ORDERED: NA CHLORIDE 0.9% 500 ML ONE (14:22)
[2021-03-07 15:21] VITALS: TEMP 96.8
[2021-03-07 16:51] VITALS: BP 123/66; O2SAT 96
--- NOTE | 2021-03-08 01:21 | OP ---
Date of Procedure: 03/07/2021 Surgeon: STONE RUBIN Procedure Performed: Selective coronary angiogram. Indication: Unstable angina. Access: Right radial artery 6-Kazakh closed with TR band. Complications: None. Bleeding: Less than 10 mL. Description Of Procedure: After risks, benefits, and alternatives were explained, the patient agreed to the procedure and signed informed consent. Patient was brought to the cardiac catheterization la boratory, prepped and draped in usual sterile fashion. Then, we accessed right radial artery using p Meizu micropuncture kit and placed a 6-Kazakh slender sheath and then took a 5-Kazakh Jackson 4.0 ca theter into the aortic root over a J-wire, engaged left main and the right coronary artery and took s tandard views. Then, we removed the catheter and sheath and placed TR band with good hemostasis. Findings: 1.Left main, large and normal. 2.LAD, large, normal. 3.Left circumflex normal. 4.RCA large, dominant and normal. Conclusion: 1.Normal coronary arteries. 2.Noncardiac chest pain. Plan: Medical management and look for other causes of chest pain. SR/MODL Voice ID: [id number] Report ID: [id number]
== END 2021-03-07 17:11 | disposition home or self-care (01) ==
LOC: CCL 13:55
PROVIDERS: ATTEND Internal Medicine
DX: R07.89 Other chest pain (principal); I10 Essential (primary) hypertension; Z88.3 Allergy status to other anti-infective agents; Z20.822 Contact with and (suspected) exposure to COVID-19
CPT/HCPCS: 85025; 80048; 36415; 85610; 85730; 71046; 93454; U0002; C1893; J1644 ×2; J2250; J3010; J7040

== ENCOUNTER 2022-01-13 10:03 | Emergency (ER) | payer BC ==
--- OUTSIDE RECORDS SUMMARY | 2022-01-13 10:14 | XMS REPORT | Continuity of Care Document ---
:1965 Author Organization Formerly [facility] t Address [address] [place] [address] Care Team Providers Name Role Phone CRISTIAN Primary Care Physician Unavailable DON Attending Clinician Unavailable CRISTIAN Attending Clinician Unavailable Cristian FUEL TECHNICIAN Attending Clinician Doctor Unassigned, Name Attending Clinician Unavailable Kalpesh DIXON L Attending Clinician ANENE Admitting Clinician Unavailable Payers Payer Name Policy Type Policy Number Effective Date Expiration Date S h[facility] [id number] 2015 EMPLOYEE PLAN 00:00:00 Problems Condition Condition Condition Status Onset Resolution Last Treating Co mments Source Name Details Category Date Date Treatment Clinician Date Chronic Chronic Disease Active 2015-11 Univers low back low back 0-28 ity of pain pain 00:00: [place] [address] Medical Branch Localized Localized Disease Active Overview: [facility] 7-03 Formattin ity of l l 00:00: g of this [place] swelling, swelling, 00 note Medi claus mass, or mass, or might be Bran ch lump lump different from the original. Jaw mass Allergies, Adverse Reactions, Alerts Allergy Allergy Status Severity Reaction(s) Onset Inactive Treating Comm ents Source Name Type Date Date Clinician Erythrom Propensi Active Hives 2009-11 Univer s ycin ty to 0-08 ity of adverse 00:00: [place] reaction 00 Medical s Branch ERYTHROM DRUG Active Hives 2009-11 Univers YCIN 0-08 ity of 00:00: [place] [address] Medical Branch Social History Social Habit Start Date Stop Date Quantity Comments Source Exposure to Not sure [facility] SARS-CoV-2 (event) Medica l Branch Alcohol intake 2021-12-17 2021-12-17 0 /d [facility] 00:00:00 00:00:00 Medical Branch Sex Ass[birth year] At [birth year] [facility] 00:00:00 00:00:00 Medical Branch Smoking Status Start Date Stop Date Source Never smoker [facility] Medications Ordered Filled Start Stop Current Ordering Indication Dosage Frequency Signature Comments Components Source Medication Medication Date Date Medication? Clinician (SIG) Name Name albuterol Yes Inhale. Unive rs sulfate 2-15 ity of (PROAIR HFA 13:26: [place] INHALE) [address] [place] [address] aspirin 81 Yes 81mg Take 81 mg U nivers mg chewable 2-15 by mouth ity of tablet 13:26: daily. [address] fluoxetine Yes 60mg Take 60 mg U nivers HCl (PROZAC 2-15 by mouth. ity of ORAL) 13:26: [address] albuterol Yes Inhale. Unive rs sulfate 2-15 ity of (PROAIR HFA 13:26: [place] INHALE) [address] [place] [address] aspirin 81 Yes 81mg Take 81 mg U nivers mg chewable 2-15 by mouth ity of tablet 13:26: daily. [address] fluoxetine Yes 60mg Take 60 mg U nivers HCl (PROZAC 2-15 by mouth. ity of ORAL) 13:26: [address] albuterol Yes Inhale. Unive rs sulfate 2-15 ity of (PROAIR HFA 13:26: [place] INHALE) [address] [place] [address] aspirin 81 Yes 81mg Take 81 mg U nivers mg chewable 2-15 by mouth ity of tablet 13:26: daily. [address] fluoxetine Yes 60mg Take 60 mg U nivers HCl (PROZAC 2-15 by mouth. ity of ORAL) 13:26: [address] albuterol Yes Inhale. Unive rs sulfate 2-15 ity of (PROAIR HFA 13:26: [place] INHALE) [address] [place] [address] aspirin 81 2022-0 Yes 81mg Take 81 mg U nivers mg chewable 2-15 by mouth ity of tablet 13:26: daily. [address] Branch fluoxetine 2021-0 Yes 60mg Take 60 mg U nivers HCl (PROZAC 2-15 by mouth. ity of ORAL) 13:26: [address] Branch albuterol 0 Yes Inhale. Unive rs sulfate 2-15 ity of (PROAIR HFA 13:26: [place] INHALE) [address] [place] [address] aspirin 81 2021-0 Yes 81mg Take 81 mg U nivers mg chewable 2-15 by mouth ity of tablet 13:26: daily. [address] Branch fluoxetine 0 Yes 60mg Take 60 mg U nivers HCl (PROZAC 2-15 by mouth. ity of ORAL) 13:26: [address] Branch albuterol 0 Yes Inhale. Unive rs sulfate 2-15 ity of (PROAIR HFA 13:26: [place] INHALE) [address] [place] [address] aspirin 81 0 Yes 81mg Take 81 mg U nivers mg chewable 2-15 by mouth ity of tablet 13:26: daily. [address] fluoxetine 0 Yes 60mg Take 60 mg U nivers HCl (PROZAC 2-15 by mouth. ity of ORAL) 13:26: [address] Branch levocetiriz 2021-0 Yes [id number] 5mg Take 1 Univers ine 5 mg 2-15 tablet by ity of tablet 00:00: mouth [place] 00 every Medical evening. Branch levocetiriz 2021-0 Yes [id number] 5mg Take 1 Univers ine 5 mg 2-15 tablet by ity of tablet 00:00: mouth [place] 00 every Medical evening. Branch levocetiriz 2021-0 Yes [id number] 5mg Take 1 Univers ine 5 mg 2-15 tablet by ity of tablet 00:00: mouth [place] 00 every Medical evening. Branch levocetiriz 2021-0 Yes [id number] 5mg Take 1 Univers ine 5 mg 2-15 tablet by ity of tablet 00:00: mouth [place] 00 every Medical evening. Branch levocetiriz 2021-0 Yes [id number] 5mg Take 1 Univers ine 5 mg 2-15 tablet by ity of tablet 00:00: mouth [place] 00 every Medical evening. Branch levocetiriz Yes [id number] 5mg Take 1 Univers ine 5 mg 2-15 tablet by ity of tablet 00:00: mouth 00 every Medical evening. Branch tobramycin 2021- No [id number] 2[drp] Place 2 Univers (TOBREX) 06-15 9104 Drops in ity of 0.3 % 00:00: 00:00 both eyes [place] ophthalmic 00 :00 4 (four) Medic al drops times Branch daily. tobramycin 2021- No [id number] 2[drp] Place 2 Univers (TOBREX) 06-15 9104 Drops in ity of 0.3 % 00:00: 00:00 both eyes [place] ophthalmic 00 :00 4 (four) Medic al drops times Branch daily. metroNIDAZO 2021- No 500mg Take 1 Un jarrell LE (FLAGYL) 06-22-15 tablet by it y of 500 mg 00:00: 00:00 mouth 2 [place] tablet 00 :00 (two) Medical times Branch daily. metroNIDAZO 2021- No 500mg Take 1 Un jarrell LE (FLAGYL) 06-22-15 tablet by it y of 500 mg 00:00: 00:00 mouth 2 [place] tablet 00 :00 (two) Medical times Branch daily. estradiol 2021- No [id number] .5g Insert 0.5 Univers 0.01 % (0.1 8-10 02-15 g into ity o f mg/gram) 00:00: 00:00 vagina [place] vaginal 00 :00 weekly. Medical cream Insert Branch 0.5g daily at night for 2 weeks and then 2-3 times a week PRN estradiol 2021- No [id number] .5g Insert 0.5 Univers 0.01 % (0.1 8-10 02-15 g into ity o f mg/gram) 00:00: 00:00 vagina [place] vaginal 00 :00 weekly. Medical cream Insert Branch 0.5g daily at night for 2 weeks and then 2-3 times a week PRN acetaminoph 2018-11- No [id number] 11/03 - Univers en-codeine 11-02-15 tab Every ity of 300-30 mg 00:00: 00:00 4hrs [place] tablet 00 :00 needed for Medical pain or Branch cough requiring narcotic acetaminoph 2018-112- No [id number] 11/03 Univers en-codeine 11-02 02-15 tab Every ity of 300-30 mg 00:00: 00:00 4hrs [place] tablet 00 :00 needed for Medical pain or Branch cough requiring narcotic inhalationa Yes [id number] Use as Univers l spacing 9-13 directed ity of device 00:00: [place] (BREATHERIT 00 Medical E MDI Branch SPACER) inhalationa Yes [id number] Use as Univers l spacing 9-13 directed ity of device 00:00: [place] (BREATHERIT 00 Medical E MDI Branch SPACER) inhalationa Yes [id number] Use as Univers l spacing 9-13 directed ity of device 00:00: [place] (BREATHERIT 00 Medical E MDI Branch SPACER) inhalationa Yes [id number] Use as Univers l spacing 9-13 directed ity of device 00:00: [place] (BREATHERIT 00 Medical E MDI Branch SPACER) inhalationa Yes [id number] Use as Univers l spacing 9-13 directed ity of device 00:00: [place] (BREATHERIT 00 Medical E MDI Branch SPACER) inhalationa Yes [id number] Use as Univers l spacing 9-13 directed ity of device 00:00: [place] (BREATHERIT 00 Medical E MDI Branch SPACER) albuterol Yes [id number] 2.5mg Inhale 3 Univers 2.5 mg /3 8-30 mL every 4 ity of mL (0.083 00:00: (four) [place] %) 00 hours as Medical nebulizer needed for Bran ch solution Wheezing or Shortness of Breath. albuterol 2018- Yes [id number] 2.5mg Inhale 3 Univers 2.5 mg /3 8-30 mL every 4 ity of mL (0.083 00:00: (four) [place] %) 00 hours as Medical nebulizer needed for Bran ch solution Wheezing or Shortness of Breath. albuterol Yes [id number] 2.5mg Inhale 3 Univers 2.5 mg /3 8-30 mL every 4 ity of mL (0.083 00:00: (four) [place] %) 00 hours as Medical nebulizer needed for Bran ch solution Wheezing or Shortness of Breath. albuterol 2018- Yes [id number] 2.5mg Inhale 3 Univers 2.5 mg /3 8-30 mL every 4 ity of mL (0.083 00:00: (four) [place] %) 00 hours as Medical nebulizer needed for Bran ch solution Wheezing or Shortness of Breath. albuterol 2018- Yes [id number] 2.5mg Inhale 3 Univers 2.5 mg /3 8-30 mL every 4 ity of mL (0.083 00:00: (four) [place] %) 00 hours as Medical nebulizer needed for Bran ch solution Wheezing or Shortness of Breath. albuterol Yes [id number] 2.5mg Inhale 3 Univers 2.5 mg /3 8-30 mL every 4 ity of mL (0.083 00:00: (four) [place] %) 00 hours as Medical nebulizer needed for Bran ch solution Wheezing or Shortness of Breath. methylPREDN 2021- No [id number] Take by [facility] 4 830 02-15 mouth ity of mg tablets 00:00: 00:00 SEE-INSTRU [place] 00 :00 CTIONS. Medical follow Branch package directions methylPREDN 2021- No [id number] Take by [facility] ISolone 4 8-30 02-15 mouth ity of mg tablets 00:00: 00:00 SEE-INSTRU [place] 00 :00 CTIONS. Medical follow Branch package directions triamcinolo 2018- Yes [id number] Apply to [facility] [place] [facility] 06-10 area(s) 2 ity of acetonide 00:00: (two) [place] 0.1 % cream 00 times Medical daily. Branch triamcinolo Yes [id number] Apply to [facility] [place] [facility] 8 area(s) 2 ity of acetonide 00:00: (two) [place] 0.1 % cream 00 times Medical daily. Branch triamcinolo Yes [id number] Apply to [facility] [place] [facility] 06-10 area(s) 2 ity of acetonide 00:00: (two) [place] 0.1 % cream 00 times Medical daily. Branch triamcinolo Yes [id number] Apply to [facility] [place] [facility] 06-10 area(s) 2 ity of acetonide 00:00: (two) [place] 0.1 % cream 00 times Medical daily. Branch triamcinolo 2019-0 Yes [id number] Apply to [facility] [place] [facility] 06-10 area(s) 2 ity of acetonide 00:00: (two) [place] 0.1 % cream 00 times Medical daily. Branch triamcinolo 2019-0 Yes [id number] Apply to [facility] [place] [facility] 06-10 area(s) 2 ity of acetonide 00:00: (two) [place] 0.1 % cream 00 times Medical daily. Branch hydroCHLORO 0 Yes Univer s thiazide 8-02 ity of 12.5 mg 00:00: [place] tablet 00 Medical Branch metoprolol 2018-0 Yes TK 1 T PO Un jarrell succinate 8-02 QD ity of XL 25 mg 24 00:00: [place] hr tablet 00 Medical Branch amLODIPine 2019-0 Yes 5mg Take 5 mg Un jarrell 10 mg 8-02 by mouth 2 ity of tablet 00:00: (two) [place] 00 times Medical daily. Branch hydroCHLORO Yes Univer s thiazide 8-02 ity of 12.5 mg 00:00: [place] tablet 00 Medical Branch metoprolol 2019-0 Yes TK 1 T PO Un jarrell succinate 8-02 QD ity of XL 25 mg 24 00:00: [place] hr tablet 00 Medical Branch amLODIPine 2019-0 Yes 5mg Take 5 mg Un jarrell 10 mg 8-02 by mouth 2 ity of tablet 00:00: (two) [place] 00 times Medical daily. Branch hydroCHLORO Yes Univer s thiazide 8-02 ity of 12.5 mg 00:00: [place] tablet 00 Medical Branch metoprolol 2019-0 Yes TK 1 T PO Un jarrell succinate 8-02 QD ity of XL 25 mg 24 00:00: [place] hr tablet 00 Medical Branch amLODIPine 2019-0 Yes 5mg Take 5 mg Un jarrell 10 mg 8-02 by mouth 2 ity of tablet 00:00: (two) [place] 00 times Medical daily. Branch hydroCHLORO Yes Univer s thiazide 8-02 ity of 12.5 mg 00:00: [place] tablet 00 Medical Branch metoprolol 2019-0 Yes TK 1 T PO Un jarrell succinate 8-02 QD ity of XL 25 mg 24 00:00: [place] hr tablet 00 Medical Branch amLODIPine 0 Yes 5mg Take 5 mg Un jarrell 10 mg 8-02 by mouth 2 ity of tablet 00:00: (two) [place] 00 times Medical daily. Branch hydroCHLORO Yes Univer s thiazide 8-02 ity of 12.5 mg 00:00: [place] tablet 00 Medical Branch metoprolol 0 Yes TK 1 T PO Un [place]rell succinate 8-02 QD ity of XL 25 mg 24 00:00: [place] hr tablet 00 Medical Branch amLODIPine Yes 5mg Take 5 mg Un jarrell 10 mg 8-02 by mouth 2 ity of tablet 00:00: (two) [place] 00 times Medical daily. Branch hydroCHLORO Yes Univer s thiazide 8-02 ity of 12.5 mg 00:00: [place] tablet 00 Medical Branch metoprolol 0 Yes TK 1 T PO Un jarrell succinate 8-02 QD ity of XL 25 mg 24 00:00: [place] hr tablet 00 Medical Branch amLODIPine Yes 5mg Take 5 mg Un jarrell 10 mg 8-02 by mouth 2 ity of tablet 00:00: (two) [place] 00 times Medical daily. Branch fluticasone Yes [id number] 2{puff} Inhale 2 Univers propionate 7-18 Puffs ity of 110 00:00: every 12 [place] mcg/actuati 00 (twelve) Medi claus on inhaler hours. Branch fluticasone Yes [id number] 2{puff} Inhale 2 Univers propionate 7-18 Puffs ity of 110 00:00: every 12 [place] mcg/actuati 00 (twelve) Medi claus on inhaler hours. Branch fluticasone Yes [id number] 2{puff} Inhale 2 Univers propionate 7-18 Puffs ity of 110 00:00: every 12 [place] mcg/actuati 00 (twelve) Medi claus on inhaler hours. Branch fluticasone Yes [id number] 2{puff} Inhale 2 Univers propionate 7-18 Puffs ity of 110 00:00: every 12 [place] mcg/actuati 00 (twelve) Medi claus on inhaler hours. Branch fluticasone Yes [id number] 2{puff} Inhale 2 Univers propionate 7-18 Puffs ity of 110 00:00: every 12 [place] mcg/actuati 00 (twelve) Medi claus on inhaler hours. Branch fluticasone 2019-0 Yes [id number] 2{puff} Inhale 2 Univers propionate 7-18 Puffs ity of 110 00:00: every 12 [place] mcg/actuati 00 (twelve) Medi claus on inhaler hours. Branch Vital Signs Vital Name Observation Time Observation Value Comments Source Systolic blood 2021-12-17 19:26:00 138 [facility]Hg[facility] 2021-12-17 19:26:00 79 mm[Hg] [facility] 2021-12-17 19:26:00 60 /min [facility] Body height 2021-12-17 19:26:00 172.7 cm [facility] Body weight 2021-12-17 19:26:00 68.357 kg [facility] BMI 2021-12-17 19:26:00 22.91 kg/m2 [facility] Oxygen saturation 2021-12-17 19:26:00 98 /min [facility] in Arterial blood Medical Br anch by Pulse oximetry Procedures Procedure Date / Time Performed Performing Clinician [facility] e ASSIGNMENT OF BENEFITS 2021-12-23 14:49:37 Doctor Unassigned, No [facility] Encounters Start End Encounter Admission Attending Care Care Encounter Source Date/Time Date/Time Type Type Clinicians Facility Department ID 2022-02-03 2022-02-03 Outpatient Gissell OCHOA [facility] [id number] Univers 14:45:00 14:45:00 KAYLAH Aragon404 [facility] 2022-02-03 2022-02-03 Outpatient Gissell OCHOA [facility] [id number] Univers 14:45:00 14:45:00 [facility] 2022-01-13 2022-01-13 Outpatient Gissell OCHOA [facility] [id number] Univers 09:15:00 09:15:00 KAYLAH [facility] 2022-01-13 2022-01-13 Outpatient Gissell OCHOA [facility] [id number] Univers 09:15:00 09:15:00 KAYLAH [id number] ity of [facility] 2022-01-07 2022-01-07 Outpatient R CRISTIAN [facility] [id number] Univers 09:30:00 09:30:00 MELISA [id number] ity of [facility] 2022-01-07 2022-01-07 [facility] [id number] Univers 09:30:00 09:30:00 MELISA ity [facility] [place] [facility] 2021-12-23 2021-12-23 [facility] [id number] Univers 08:51:00 23:59:00 MELISA ity [facility] [place] [facility] 2021-12-23 2021-12-23 [facility] [id number] Univers 08:51:00 23:59:00 Encounter Melisa SANTANA [id number] ity of [place] [id number] [place] [facility] [id number] [facility] [address] 2021-12-23 2021-12-23 Outpatient R CRISTIAN [facility] [id number] Univers 09:00:00 09:00:00 MELISA [id number] ity [facility] [place] [facility] 2021-12-23 2021-12-23 Orders Doctor KAREN [id number] Univers 00:00:00 00:00:00 Only Unassigned, ALEX [id number] ity of [place] [facility] [id number] Krish as [id number] [facility] [address] 2021-12-20 2021-12-20 Telephone [facility] [id number] Univers 00:00:00 00:00:00 Melisa HEALTH [id number] it y of [place] [id number] Krish as DAKSHA?BLEA [id number] [address] MEDICAL OFFICE BUILDING 2021-12-20 2021-12-20 Telephone CristianRUST [id number] Univers 00:00:00 00:00:00 Melisa HEALTH [id number] it y of [place] [id number] Krish as DAKSHA?BLEA [id number] [address] OFFICE [facility] 2021-12-17 2021-12-17 Office CristianRUST [id number] Univers 13:30:00 13:51:59 Visit Melisa AMES [id number] it y of [place] [id number] Krish as DAKSHA?BLEA [id number] [address] OFFICE [facility] 2021-12-17 2021-12-17 Outpatient R [facility] [id number] Univers 13:30:00 13:51:59 MELISA cervantes [facility] [place] [facility] 2020-06-22 2020-06-22 [facility] [id number] 00:00:00 00:00:00 Kristyn Santana [id number] [place] [id number] Professio [id number] [address] 2020-06-11 2020-06-11 [facility] [id number] 10:42:23 12:07:48 Visit Kristyn Santana [id number] [place] [id number] Professio [id number] [address] Results Test Description Test Time Test Comments Results Result Comments Source SARS-CoV-2 (COVID-19), RT-PCR/TMA 2021-11-27 08:40:42 Test Item Value Reference Range Interpretation Comme nts SARS-CoV-2 INTERPRETATION POSITIVE SEE NOTE A S ARS-CoV-2 RNA DETECTEDPositive (test code = 00661) results are indicative of the presence of LUCAS S-CoV-2 RNA;clinical co rrelation with patient history and other diagnosticinfor mation is necessary to de termine patient infection statu s.Positive results do not rule out bacterial infection or co -infectionwith other viruses. Positive and negative predic tive values oftesting are h ighly dependent on prevalence. SOURCE (test code = 40622) NASOPHARYNGEAL Note: Methodology is [employer] Real-Time RT-PC R. The expected result or ref erence range is NEGATIVE (Not D etected). For more information reg arding COVID-19 testing to incl ude clinicalinforma tion, methodology detail, intende d use, FDA authorization a ndrecommended fact sheets for dilcia ents or healthcare providers, see [facility] Announcement: S ARS-CoV-2 (COVID-19) by N AAT at URL below (note,fact shee ts are provided by method given in report:https:// www.[employer]/cl inicians/client -communications/ Alternatively, see downloadable PDF fact sheet at:https://www. [employer]/COVID- 19-RT-PCR UNLESS OTHERWISE INDICATED, ALL TESTING PERFORMED ATCLINICAL PATH OLOGY [facility], [facility]. [address] [place] [address] 4 LABORATORY DIRE CTOR: FITO BOWERS M.D. CLIA NUMBER [id number] [place]. [id number]
--- NOTE | 2022-01-13 12:33 | RAD REPORT ---
EXAM DESCRIPTION: CT - C Spine Wo Con - 01/13/2022 12:15 pm CLINICAL HISTORY: PAIN Neck pain, radiculopathy, trauma, neck injury COMPARISON: No comparisons FINDINGS: Mild disc thinning with endplate osteophyte lower cervical spine compatible with mild spon dylosis. No evidence of acute cervical spine fracture or subluxation. Prevertebral soft tissues are normal in thickness. 18 mm cyst versus mucous retention cyst left maxillary antrum. IMPRESSION: Negative for acute cervical spine abnormality. Mild lower cervical spondylosis. All CT scans are performed using dose optimization technique as appropriate and may include automated exposure control or mA/KV adjustment according to patient size.
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
[2022-01-13 13:32] VITALS: BP 148/88; TEMP 97.8; O2SAT 98
== END 2022-01-13 13:13 | disposition home or self-care (01) ==
LOC: ER 10:03
DX: S13.4XXA Sprain of ligaments of cervical spine, initial encounter (principal); V49.40XA Driver injured in collision with unspecified motor vehicles in traffic accident, initial encounter; I10 Essential (primary) hypertension; J45.909 Unspecified asthma, uncomplicated; Z88.1 Allergy status to other antibiotic agents; Z88.3 Allergy status to other anti-infective agents
CPT/HCPCS: 72125; 99283

== ENCOUNTER 2023-11-18 10:57 | Day surgery (SDC) | payer BC ==
[2023-11-18 11:37] LABS: Absolute Lymphocytes (CBC) 1.4 K/uL (0.7-4.9); Hematocrit 47.9 % (36.0-45.0); Lymphocytes % 34.8 % (15.3-44.8); MCV 94.4 fL (80-100); MPV 8.5 fL (7.6-11.3); Platelets 363 thou/uL (152-406); RBC Red Blood Cell Count 5.08 M/uL (3.86-4.86)
[2023-11-18 13:32] VITALS: BP 123/68; TEMP 98; O2SAT 100
== END 2023-11-18 12:30 | disposition home or self-care (01) ==
LOC: DS 10:57
PROVIDERS: ATTEND Internal Medicine Hematology & Oncology
DX: D45 Polycythemia vera (principal); D47.1 Chronic myeloproliferative disease; D75.838 Other thrombocytosis; E61.1 Iron deficiency
CPT/HCPCS: 36415; 85025; 99195

== ENCOUNTER 2023-12-22 08:35 | Day surgery (SDC) | payer BC ==
[2023-12-22 08:58] LABS: Hematocrit 45.4 % (36.0-45.0)
[2023-12-22 10:23] VITALS: BP 164/82; TEMP 97.9; O2SAT 97; BMI 25.0
== END 2023-12-22 09:43 | disposition home or self-care (01) ==
LOC: DS 08:35
PROVIDERS: ATTEND Internal Medicine Hematology & Oncology
DX: D45 Polycythemia vera (principal); D47.1 Chronic myeloproliferative disease; D75.838 Other thrombocytosis; E61.1 Iron deficiency
CPT/HCPCS: 36415; 85014; 85018; 99195

== ENCOUNTER 2024-01-21 09:40 | Day surgery (SDC) | payer BC ==
[2024-01-21 10:19] LABS: Hematocrit 44.4 % (36.0-45.0); Hemoglobin 14.9 g/dL (12.0-15.0)
[2024-01-21 10:29] VITALS: BMI 25.0
[2024-01-21 11:55] VITALS: BP 144/78; TEMP 98.6; O2SAT 100
== END 2024-01-21 11:40 | disposition home or self-care (01) ==
LOC: DS 09:40
PROVIDERS: ATTEND Internal Medicine Hematology & Oncology
DX: D45 Polycythemia vera (principal); D47.1 Chronic myeloproliferative disease; D75.838 Other thrombocytosis; E61.1 Iron deficiency
CPT/HCPCS: 36415; 85014; 85018; 99195

== ENCOUNTER 2024-02-24 10:36 | Day surgery (SDC) | payer BC ==
[2024-02-24 11:20] LABS: Hematocrit 46.8 % (36.0-45.0)
[2024-02-24 13:34] VITALS: BP 110/69; TEMP 97.5; O2SAT 99; BMI 25.0
== END 2024-02-24 12:28 | disposition home or self-care (01) ==
LOC: DS 10:36
PROVIDERS: ATTEND Internal Medicine Hematology & Oncology
DX: D45 Polycythemia vera (principal); D47.1 Chronic myeloproliferative disease; D75.838 Other thrombocytosis; E61.1 Iron deficiency
CPT/HCPCS: 36415; 85014; 85018; 99195

== ENCOUNTER → 2024-05-06 | Day surgery (SDC) | payer BC ==
[~2024-05-06] MED LIST changes: -CEFOXITIN/SWI 1gm 1 GM/10 ML SYR IVP SCH; +LIDOCAINE 1% MPF 5 ML VIAL ONE
[2024-05-06 09:40] LABS: Absolute Eosinophils 0.2 K/uL (0-0.5); Absolute Lymphocytes (CBC) 1.8 K/uL (0.7-4.9); Absolute Monocytes 0.5 K/uL (0.1-1.3); Absolute Neutrophil 2.7 K/uL (1.8-8.0); Basophils % 0.5 % (0-1.3); Eosinophils % 4.2 % (0-4.4); Hematocrit 44.5 % (36.0-45.0); Hemoglobin 13.7 g/dL (12.0-15.0); Lymphocytes % 34.7 % (15.3-44.8); MCH 24.9 pg (27.0-35.0); MCHC 30.8 g/dL (32.0-36.0); MPV 9.2 fL (7.6-11.3); Neutrophils % 51.6 % (41.7-73.7); Platelets 348 thou/uL (152-406); RBC Red Blood Cell Count 5.49 M/uL (3.86-4.86); Red Cell Distribution Width 16.7 % (12.1-15.2)
[2024-05-06 10:27] VITALS: BP 128/70; TEMP 97.1; O2SAT 97; BMI 24.3
== END ==
LOC: DS 09:04
PROVIDERS: ATTEND Internal Medicine Hematology & Oncology
DX: D45 Polycythemia vera (principal); D47.1 Chronic myeloproliferative disease; D75.838 Other thrombocytosis; E61.1 Iron deficiency
CPT/HCPCS: 36415; 85025; 99195; J2001

== ENCOUNTER 2024-06-09 07:44 | Day surgery (SDC) | payer BC ==
[2024-06-09 08:15] LABS: Absolute Eosinophils 0.2 K/uL (0-0.5); Absolute Lymphocytes (CBC) 2.1 K/uL (0.7-4.9); Absolute Monocytes 0.5 K/uL (0.1-1.3); Absolute Neutrophil 2.4 K/uL (1.8-8.0); Basophils % 0.6 % (0-1.3); Eosinophils % 4.6 % (0-4.4); Hemoglobin 13.1 g/dL (12.0-15.0); Lymphocytes % 39.9 % (15.3-44.8); MCH 24.3 pg (27.0-35.0); MCHC 31.1 g/dL (32.0-36.0); MCV 78.3 fL (80-100); Monocytes % 8.6 % (3.3-12.3); Neutrophils % 46.3 % (41.7-73.7); Platelets 370 thou/uL (152-406); RBC Red Blood Cell Count 5.37 M/uL (3.86-4.86); Red Cell Distribution Width 17.1 % (12.1-15.2)
[2024-06-09 08:16] VITALS: BP 156/80; TEMP 97; O2SAT 99; BMI 25.2
== END 2024-06-09 08:52 | disposition home or self-care (01) ==
LOC: DS 07:44
PROVIDERS: ATTEND Internal Medicine Hematology & Oncology
DX: D45 Polycythemia vera (principal); D47.1 Chronic myeloproliferative disease; D75.838 Other thrombocytosis; E61.1 Iron deficiency
CPT/HCPCS: 36415; 85025